=== PATIENT | female | born 1940 | race Hispanic/Latino ===

== ENCOUNTER 2017-01-09 11:34 | Inpatient (IN) | payer MEDICARE, BC ==
[2017-01-09 11:35] VITALS: BMI 28.3
[2017-01-09] MEDS ORDERED: Sodium Chloride 0.9% 500 ML IV STA (12:38)
--- NOTE | 2017-01-09 13:11 | ED PDOC ---
Arrival/HPI - General Chief Complaint: Lower Extremity Problem/Injury Time Seen by Provider: 01/09/17 12:33 Historian: Patient - History of Present Illness Narrative History of Present Illness (Text): 01/09/17 12:35 Mela Washington is a 76 year old female who presents to the emergency department complaining of worsening chronic weakness and chronic lower extremity weakness for the last few months. Patient was sent in by PMD for admission and further evaluation. Patient notes that she experienced associated intermittent nausea, vomiting, and diarrhea with no abdominal pain. At present, patient is currently asymptomatic and has no other complaints at this time. Time/Duration: Other (few months) Symptom Onset: Gradual Symptom Course: Worsening Activities at Onset: Light Context: Home Past Medical History - Provider Review Nursing Documentation Reviewed: Yes - Infectious Disease Hx of Infectious Diseases: None - Tetanus Immunization Tetanus Immunization: Unknown - Cardiac Hx Cardiac Disorders: Yes Hx Congestive Heart Failure: Yes Hx Hypertension: Yes - Pulmonary Hx Respiratory Disorders: Yes (pe 09/2014) - Neurological Hx Neurological Disorder: Yes (memory loss) Hx Parkinson's Disease: No - HEENT Hx HEENT Disorder: Yes (glasses) Hx Cataracts: Yes (b/l) Hx Macular Degeneration: Yes Other/Comment: left eye sx - Renal Hx Renal Disorder: No Other/Comment: overactive bladder - Endocrine/Metabolic Hx Diabetes Mellitus Type 2: Yes - Hematological/Oncological Hx Blood Transfusions: Yes Hx Blood Transfusion Reaction: No - Integumentary Other/Comment: bruises easily, eccymosis to abd - Musculoskeletal/Rheumatological Hx Arthritis: Yes - Gastrointestinal Hx Gastrointestinal Disorders: Yes Hx Gastroesophageal Reflux: Yes Other/Comment: gallstones, common bile duct stent - Genitourinary/Gynecological Hx Genitourinary Disorders: Yes Hx Incontinence: Yes - Psychiatric Hx Anxiety: Yes Hx Depression: Yes Hx Emotional Abuse: No Hx Physical Abuse: No Hx Substance Use: No Other/Comment: sleep difficulties - Surgical History Hx Musculoskeletal Surgery: Yes (bilat knee repair) - Anesthesia Hx Anesthesia: Yes Hx Anesthesia Reactions: Yes Hx Malignant Hyperthermia: No - Suicidal Assessment Feels Threatened In Home Enviroment: No Family/Social History - Physician Review Nursing Documentation Reviewed: Yes Family/Social History: No Known Family HX Smoking Status: Former Smoker Hx Alcohol Use: No Hx Substance Use: No Hx Substance Use Treatment: No Allergies/Home Meds Allergies/Adverse Reactions: Allergies No Known Allergies Allergy (Verified 01/09/17 11:51) Home Medications: Home Meds Medication Instructions Recorded Confirmed Atorvastatin Calcium [Lipitor] 20 mg PO DAILY 03/30/13 01/09/17 Metoprolol Succinate [Toprol XL] 200 mg PO DAILY 09/16/14 01/09/17 Albuterol 0.083% [Albuterol 0.083% 3 ml IH QID PRN 03/29/15 01/09/17 Inhal Gladys (2.5 mg/3 ml) UD] Allopurinol 100 mg PO DAILY 07/20/15 01/09/17 Aricept 5 mg PO HS 07/20/15 01/09/17 Boniva 150 mg PO Q30D 07/20/15 01/09/17 Lasix 40 mg PO DAILY 07/20/15 01/09/17 Methimazole 10 mg PO TID 07/20/15 01/09/17 Montelukast [Singulair] 10 mg PO HS 07/20/15 01/09/17 Apixaban [Eliquis] 5 mg PO BID 10/04/15 01/09/17 Darifenacin Hydrobromide [Enablex] 15 mg PO HS 10/04/15 01/09/17 Escitalopram [Lexapro] 20 mg PO DAILY 10/04/15 01/09/17 Potassium Chloride [Klor-Con M20] 20 meq PO BID 10/04/15 01/09/17 diltiaZEM CD [Cardizem CD] 240 mg PO DAILY 10/04/15 01/09/17 Physical Exam - Physical Exam Narrative Physical Exam (Text): - Review of Systems Constitutional: Chronic weakness. absent: Fatigue, Weight Change, Fevers Eyes: Normal ENT: Normal Respiratory: Normal absent: SOB, Cough, Sputum Cardiovascular: Normal absent: Chest pain, Palpitations, Syncope Gastrointestinal: Normal absent: Abdominal pain, Diarrhea, Nausea, Vomiting Genitourinary: Normal. absent: Dysuria, Frequency, Hematuria Musculoskeletal: Normal. absent: Arthralgias, Back Pain, Neck Pain Skin: Normal Neurological: Normal absent: Focal Weakness Endocrine: Normal Hemo/Lymphatic: Normal Psychiatric: Normal - Physical exam Patient appears age appropriate, speaking full sentences without difficulty - Systems Exam Head: Present: Atraumatic, Normocephalic Pupils: Present: PERRL Extraocular Muscles: Present: EOMI Conjunctiva: Present: Normal Mouth: Present: Moist Mucous Membranes Neck: Present: Normal Range of Motion. No: MIDLINE TENDERNESS, Paraspinal Tenderness Respiratory/Chest: Present: Clear to Auscultation, Good Air Exchange. No: Respiratory Distress, Accessory Muscle Use, Tachypnic Cardiovascular: Present: Regular Rate and Rhythm, Normal S1, S2, Peripheral Pulses Present. No: Murmurs Abdomen: Present: Normal Bowel Sounds, No: Tenderness, Peritoneal Signs, Rebound, Guarding, Distention Back: Present: Normal Inspection. No: Midline Tenderness, Paraspinal Tenderness Upper Extremity: Present: Normal Inspection. No: Cyanosis, Edema Lower Extremity: Present: Normal Inspection. No: Edema Neurological: Present: GCS=15, Speech Normal, cranial nerves II through XII fully intact with no cerebellar abnormality, neuro-sensory fully intact. No focal neurological deficits. Skin: Present: Warm, Dry, Normal Color. No: Rashes Lymphatic: Present: OX3, NI, NC Psychiatric: Present: Alert, Oriented x 3, Normal Insight, Normal Concentration Vital Signs Reviewed: Yes Vital Signs Temp Pulse Resp BP Pulse Ox 01/09/17 13:11 63 18 142/81 93 L 01/09/17 12:25 72 17 139/76 95 01/09/17 11:47 98.3 F 68 18 143/68 98 Temperature: Afebrile Blood Pressure: Normal Pulse: Regular Respiratory Rate: Normal Appearance: Positive for: Well-Appearing, Non-Toxic, Comfortable Pain Distress: None Mental Status: Positive for: Alert and Oriented X 3 Medical Decision Making ED Course and Treatment: 01/09/17 12:35 Impression: 76 year old female complaining of worsening chronic weakness and chronic lower extremity weakness for the last few months. No focal neurological deficits on examination. Differential Diagnosis included but are not limited to: dehydration vs. deconditioning Plan: -- EKG -- Chest X-ray -- IV Fluids -- Labs -- Reassess and disposition Prior Visits: Notes and results from previous visits were reviewed. Patient last seen in the ED on 10/04/15 referred by PMD for pain evaluation and x-ray. Patient was discharged home. Progress Notes: 01/09/17 13:20 Chest X-ray: Creator : Allan Leyva MD IMPRESSION: No active disease. 01/09/17 14:[address] De Santiago, who states that he will admit patient to his service. Diagnosis is weakness and pancreatitis. Dr. Velasquez on consult. pt in no distress, aware of and agrees with plan EKG shows atrial fibrillation, 67 bpm, no ST segment elevations. Interpreted by me. 01/09/17 14:14 - Lab Interpretations Lab Results: 01/09/17 00:51 01/09/17 13:00 Lab Results 01/09/17 13:00: Sodium 138, Potassium 3.5 L, Chloride 101, Carbon Dioxide 26, Anion Gap 15, BUN 31 H, Creatinine 0.7, Est GFR ( Amer) > 60, Est GFR ( Non-Af Amer) > 60, Random Glucose 115 H, Calcium 10.0, Total Bilirubin 1.0, AST 63 H, ALT 58 H, Alkaline Phosphatase 95, Total Protein 7.2, Albumin 3.7, Globulin 3.4, Albumin/Globulin Ratio 1.1, Lipase 1692 H 01/09/17 00:51: PT 11.9 H, INR 1.10 H, APTT 26.5 01/09/17 00:51: WBC 8.2, RBC 4.36, Hgb 12.2, Hct 36.8, MCV 84.4, MCH 28.0, MCHC 33.2, RDW 15.4 H, Plt Count 167, MPV 12.2 H, Gran % 68.8 H, Lymph % (Auto) 20.8 L, Perkins % (Auto) 9.1 H, Eos % (Auto) 1.1 L, Baso % (Auto) 0.2, Gran # 5.64, Lymph # 1.7, Perkins # 0.8 H, Eos # 0.1, Baso # 0.02 I have reviewed the lab results: Yes - RAD Interpretation Radiology Orders: 01/09/17 12:34 CHEST PORTABLE [RAD] Stat 01/09/17 13:47 ABD & PELVIS IV CONTRAST ONLY [CT] Stat - Medication Orders Current Medication Orders: Sodium Chloride (Sodium Chloride 0.9%) 1,000 mls @ 1,000 mls/hr IV .Q1H STA Stop: 01/09/17 14:46 Last Admin: 01/09/17 13:55 Dose: 1,000 mls/hr Discontinued Medications Sodium Chloride (Sodium Chloride 0.9%) 500 mls @ 1,000 mls/hr IV .Q30M STA Stop: 01/09/17 13:07 Last Admin: 01/09/17 13:06 Dose: 1,000 mls/hr Iohexol (Omnipaque 350 100 Ml) Confirm Administered Dose 350 mg .ROUTE .STK-MED ONE Stop: 01/09/17 14:05 - Scribe Statement The provider has reviewed the documentation as recorded by the Scribe Colleen Montgomery Provider Scribe Attestation: All medical record entries made by the Scribe were at my direction and personally dictated by me. I have reviewed the chart and agree that the record accurately reflects my personal performance of the history, physical exam, medical decision making, and the department course for this patient. I have also personally directed, reviewed, and agree with the discharge instructions and disposition. Disposition/Present on Arrival - Present on Arrival Any Indicators Present on Arrival: No History of DVT/PE: Yes History of Uncontrolled Diabetes: No Urinary Catheter: No (inserted in or) History of Decub. Ulcer: No History Surgical Site Infection Following: None - Disposition Have Diagnosis and Disposition been Completed?: Yes Diagnosis: Pancreatitis Disposition: HOSPITALIZED Disposition Time: 14:03 Patient Plan: Admission Condition: FAIR Referrals: Oniel De Santiago MD [Primary Care Provider] - Follow up with primary
[2017-01-09 13:12] LABS: ADD MANUAL DIFF? NO
[2017-01-09 13:17] LABS: BASO # 0.02 K/mm3 (0.0-2.0); BASO % 0.2 % (0.0-3.0); EOS # 0.1 (0.0-0.7); EOS % 1.1 % (1.5-5.0); GRAN # 5.64 (1.4-6.5); GRAN % 68.8 % (50.0-68.0); HEMATOCRIT 36.8 % (36.0-48.0); LYMPH # 1.7 (1.2-3.4); LYMPH % 20.8 % (22.0-35.0); MEAN CELL VOLUME 84.4 fL (80.0-105.0); MEAN CORPUSCULAR HGB CONC 33.2 g/dl (31.0-37.0); MEAN PLATELET VOLUME 12.2 fl (7.0-11.0); MONO # 0.8 (0.1-0.6); MONO % 9.1 % (1.0-6.0); PLATELET COUNT 167 10^3/uL (120.0-450.0); RED CELL DISTRIBUTION WIDTH 15.4 % (11.5-14.5); WHITE BLOOD COUNT 8.2 10^3/ul (4.5-11.0)
--- NOTE | 2017-01-09 13:18 | RAD ---
HISTORY: cough COMPARISON: 07/25/2015 FINDINGS: LUNGS: No active pulmonary disease. PLEURA: No significant pleural effusion identified, no pneumothorax apparent. CARDIOVASCULAR: Normal. OSSEOUS STRUCTURES: No significant abnormalities. VISUALIZED UPPER ABDOMEN: Normal. OTHER FINDINGS: None. IMPRESSION: No active disease.
[2017-01-09 13:23] LABS: ALB/GLOB RATIO 1.1 (1.1-1.8); ALKALINE PHOSPHATASE 95 U/L (38-133); ALT/SGPT 58 U/L (7-56); AST/SGOT 63 U/L (15-39); BLOOD UREA NITROGEN 31 mg/dL (7-21); CARBON DIOXIDE 26 mmol/L (21-33); CHLORIDE 101 mmol/L (98-107); GFR AFRICAN-AMERICAN > 60; GLUCOSE,RANDOM 115 mg/dL (70-110); LIPASE 1692 U/L (23-300); POTASSIUM 3.5 mmol/L (3.6-5.0); SODIUM 138 mmol/L (132-148); TOTAL PROTEIN 7.2 g/dL (5.8-8.3)
[2017-01-09 13:24] LABS: INR 1.1 (0.93-1.08); PARTIAL THROMBOPLASTIN TIME 26.5 Seconds (23.7-30.8)
[2017-01-09] MEDS ORDERED: Sodium Chloride 0.9% 1,000 ML IV STA (13:47)
[2017-01-09] MEDS ORDERED: Iohexol 350 MG/100 ML VIAL ONE (14:04)
--- NOTE | 2017-01-09 14:41 | CT ---
PROCEDURE: CT Abdomen and Pelvis with contrast HISTORY: abd pain COMPARISON: None. TECHNIQUE: Contrast dose: 100 cc of Omni 350 Radiation dose: Total exam DLP = 423 mGy-cm. This CT exam was performed using one or more of the following dose reduction techniques: Automated exposure control, adjustment of the mA and/or kV according to patient size, and/or use of iterative reconstruction technique. FINDINGS: LOWER THORAX: Unremarkable. LIVER: Unremarkable. No gross lesion or ductal dilatation. GALLBLADDER AND BILE DUCTS: Gallbladder removed PANCREAS: Unremarkable. No gross lesion or ductal dilatation. SPLEEN: Unremarkable. ADRENALS: Unremarkable. No mass. KIDNEYS AND URETERS: Unremarkable. No hydronephrosis. No solid mass. VASCULATURE: Unremarkable. No aortic aneurysm. BOWEL: Unremarkable. No obstruction. No gross mural thickening. APPENDIX: Normal appendix. PERITONEUM: The previous study showed a large chronic hematoma anterior to the left psoas muscle displacing the left kidney. This has resolved. There is a minimal 12 mm collection seen on axial 84 series 2. LYMPH NODES: Unremarkable. No enlarged lymph nodes. BLADDER: Unremarkable. REPRODUCTIVE: Unremarkable. BONES: No acute fracture. OTHER FINDINGS: None. IMPRESSION: No acute findings
[2017-01-09] MEDS ORDERED: Albuterol-Ipratrop 3 mg / 0.5 (3 ml) UD IH PRN (18:26)
[2017-01-09] MEDS ORDERED: Potassium Chloride 20 mEq ER Tab PO STA (18:27)
[2017-01-09] MEDS ORDERED: Pneumococcal 23-Valent Vaccine IM ONE (21:23)
[2017-01-09] MEDS ORDERED: DARIFENACIN HYDROBROMIDE 15 MG PO SCH (22:00)
[2017-01-09] MEDS ORDERED: Potassium Chloride 20 mEq ER Tab PO ONE (22:00)
--- NOTE | 2017-01-09 22:29 | CARD ---
APPROVED REPORT EKG Measurement Heart [id number] <Conclusion> Atrial fibrillation Cannot rule out Anterior infarct, age undetermined Abnormal ECG
[2017-01-10 07:05] LABS: ALB/GLOB RATIO 1.1 (1.1-1.8); ALKALINE PHOSPHATASE 80 U/L (38-133); ALT/SGPT 54 U/L (7-56); AST/SGOT 35 U/L (15-39); BILIRUBIN,TOTAL 0.7 mg/dL (0.2-1.3); BLOOD UREA NITROGEN 24 mg/dL (7-21); CALCIUM 9.5 mg/dL (8.4-10.5); CARBON DIOXIDE 27 mmol/L (21-33); CHLORIDE 106 mmol/L (98-107); GFR AFRICAN-AMERICAN > 60; GLUCOSE,RANDOM 94 mg/dL (70-110); MAGNESIUM 1.4 mg/dL (1.7-2.2); POTASSIUM 4.6 mmol/L (3.6-5.0); SODIUM 141 mmol/L (132-148); TOTAL PROTEIN 6.1 g/dL (5.8-8.3)
[2017-01-10 07:07] LABS: HEMATOCRIT 34.8 % (36.0-48.0); MEAN CELL VOLUME 86.4 fL (80.0-105.0); MEAN CORPUSCULAR HEMOGLOBIN 27.8 pg (25.0-35.0); MEAN CORPUSCULAR HGB CONC 32.2 g/dl (31.0-37.0); MEAN PLATELET VOLUME 11.6 fl (7.0-11.0); RED CELL DISTRIBUTION WIDTH 15.9 % (11.5-14.5); WHITE BLOOD COUNT 5.2 10^3/ul (4.5-11.0)
[2017-01-10] MEDS ORDERED: Metoprolol Succinate 100 mg XL Tab PO SCH (08:00)
[2017-01-10] MEDS: Potassium Chloride 20 mEq ER Tab PO SCH ×2 (09:02→18:26)
[2017-01-10] MEDS ORDERED: Lactated Ringer's 1,000 ML IV SCH ×2 (10:48→19:48)
--- NOTE | 2017-01-10 10:58 | CP.PCM.CON ---
<Reynaldo Gale - Last Filed: 01/10/17 10:54> History of Present Illness - History of Present Illness History of Present Illness: GI consult for Dr. Velasquez 76 F w PMH of choledocolithiasis s/p lap cholecystectomy and ERCP with sphincterotomy in 2014 and afib/ PE on anticoagulation came with worsening chronic weakness and chronic lower extremity weakness for the last few months. Pt was noted to have elevated lipase at 1700 and GI was consulted to evaluate. Patient notes that she experienced associated intermittent nausea, vomiting, and diarrhea with no abdominal pain. At present, patient is currently asymptomatic and has no other complaints at this time. CT showed no acute finding. Review of Systems - Constitutional Constitutional: Weakness. absent: Anorexia, Chills - Respiratory Respiratory: absent: Dyspnea - Gastrointestinal Gastrointestinal: Diarrhea, Nausea, Vomiting. absent: Abdominal Pain Past Patient History - Infectious Disease Hx of Infectious Diseases: None - Tetanus Immunizations Tetanus Immunization: Unknown - Past Social History Smoking Status: Former Smoker - CARDIAC Hx Cardiac Disorders: Yes (denies mi) Hx Cardia Arrhythmia: Yes (a fib) Hx Congestive Heart Failure: Yes Hx Hypercholesterolemia: Yes Hx Hypertension: Yes Hx Peripheral Edema: Yes - PULMONARY Hx Respiratory Disorders: Yes (pe 09/2014) - NEUROLOGICAL Hx Neurological Disorder: Yes (memory loss) Hx Parkinson's Disease: No - HEENT Hx HEENT Problems: Yes (glasses) Hx Cataracts: Yes (b/l) Hx Macular Degeneration: Yes Other/Comment: left eye sx - RENAL Hx Chronic Kidney Disease: No Other/Comment: overactive bladder - ENDOCRINE/METABOLIC Hx Diabetes Mellitus Type 2: Yes Hx Hyperthyroidism: Yes - HEMATOLOGICAL/ONCOLOGICAL Hx Blood Disorders: (blood transfusions) Hx Anemia: Yes (iron deficiency) - INTEGUMENTARY Other/Comment: bruises easily, eccymosis to abd, itchy rash to back thighs legs red raised rash,pt stated "I got the rash after given epinephrine and novacaine after my teeth were removed" - MUSCULOSKELETAL/RHEUMATOLOGICAL Hx Falls: Yes (recent) - GASTROINTESTINAL Hx Gastrointestinal Disorders: Yes (diarrhea 3.5 to 4 months after meals) Hx Gastroesophageal Reflux: Yes Other/Comment: gallstones, common bile duct stent - GENITOURINARY/GYNECOLOGICAL Hx Genitourinary Disorders: Yes (frequency) Hx Incontinence: Yes - PSYCHIATRIC Hx Anxiety: Yes Hx Depression: Yes Hx Emotional Abuse: No Hx Physical Abuse: No Other/Comment: sleep difficulties - SURGICAL HISTORY Hx Musculoskeletal Surgery: Yes (bilat knee repair) Other/Comment: colonoscopy 1 1/2 months ago polyp removed, teeth removed 2 months ago in prep for dentures, ct guided bx lymphadenopathy, r knee replaced 2010, left knee replacement 2 2014, left humerus fx sx with nohemy, d&c - ANESTHESIA Hx Anesthesia: Yes Hx Anesthesia Reactions: Yes Hx Malignant Hyperthermia: No Meds Allergies/Adverse Reactions: Allergies Allergy/AdvReac Type Severity Reaction Status Date / Time epinephrine Allergy RASH Verified 01/09/17 20:52 novacaine Allergy RASH Uncoded 01/09/17 20:52 - Medications Medications: Current Medications Albuterol/Ipratropium (Duoneb 3 Mg/0.5 Mg (3 Ml) Ud) 3 ml IH [id number] PRN PRN Reason: Shortness of Breath Allopurinol (Zyloprim) 100 mg PO DAILY RACHANA Apixaban (Eliquis) 5 mg PO BID RACHANA PRN Reason: Protocol Last Admin: 01/09/17 18:45 Dose: 5 mg Atorvastatin Calcium (Lipitor) 10 mg PO DIN [facility] Last Admin: 01/09/17 18:45 Dose: 10 mg Diltiazem HCl (Cardizem Cd) 240 mg PO DAILY RACHANA Donepezil HCl (Aricept) 5 mg PO HS [facility] Last Admin: 01/09/17 21:49 Dose: 5 mg Escitalopram Oxalate (Lexapro) 20 mg PO DAILY [facility] Furosemide (Lasix) 40 mg PO DAILY [facility] Lactated Ringer's (Lactated Ringer's) 1,000 mls @ 150 mls/hr IV .Q6H40M [facility] Metoprolol Succinate (Toprol Xl) 200 mg PO BRK [facility] Last Admin: 01/10/17 09:02 Dose: 200 mg Montelukast Sodium (Singulair) 10 mg PO HS [facility] Last Admin: 01/09/17 21:49 Dose: 10 mg Potassium Chloride (K-Dur 20 Meq Er Tab) 20 meq PO BRKDIN [facility] Last Admin: 01/10/17 09:02 Dose: 20 meq Physical Exam - Constitutional Appears: No Acute Distress - Head Exam Head Exam: ATRAUMATIC, NORMAL INSPECTION, NORMOCEPHALIC - Eye Exam Eye Exam: EOMI, Normal appearance, PERRL. absent: Scleral icterus Pupil Exam: NORMAL ACCOMODATION, PERRL - ENT Exam ENT Exam: Mucous Membranes Moist, Normal Exam - Neck Exam Neck exam: Positive for: Normal Inspection - Respiratory Exam Respiratory Exam: Clear to Auscultation Bilateral, NORMAL BREATHING PATTERN - Cardiovascular Exam Cardiovascular Exam: REGULAR RHYTHM - GI/Abdominal Exam GI & Abdominal Exam: Soft. absent: Distended, Firm, Guarding, Hernia, Rigid, Tenderness - Extremities Exam Extremities exam: Positive for: normal inspection - Back Exam Back exam: NORMAL INSPECTION - Neurological Exam Neurological exam: Alert, CN II-XII Intact, Normal Gait, Oriented x3, Reflexes Normal - Psychiatric Exam Psychiatric exam: Normal Affect, Normal Mood - Skin Skin Exam: Dry, Intact, Normal Color, Warm Results - Vital Signs Recent Vital Signs: Last Vital Signs Temp 98.3 F 01/10/17 08:00 Pulse 62 01/10/17 09:02 Resp 20 01/10/17 08:00 BP 131/65 01/10/17 09:02 Pulse Ox 96 01/10/17 08:00 - Labs Result Diagrams: 01/10/17 06:20 01/10/17 06:20 Labs: Laboratory Results - last 24 hr 01/10/17 01/10/17 06:20 06:20 WBC 5.2 D RBC 4.03 Hgb 11.2 L Hct 34.8 L MCV 86.4 MCH 27.8 MCHC 32.2 RDW 15.9 H Plt Count 147 MPV 11.6 H Sodium 141 Potassium 4.6 Chloride 106 Carbon Dioxide 27 Anion Gap 13 BUN 24 H Creatinine 0.7 Est GFR ( Amer) > 60 Est GFR (Non-Af Amer) > 60 Random Glucose 94 Calcium 9.5 Magnesium 1.4 L Total Bilirubin 0.7 AST 35 ALT 54 Alkaline Phosphatase 80 Total Protein 6.1 Albumin 3.2 Globulin 3.0 Albumin/Globulin Ratio 1.1 Assessment & Plan - Assessment and Plan (Free Text) Assessment: 76 w pmh of choledocolithiasis s/p ERCP w sphincterotomy and Lap cholecystectomy , Afib /PE on anticoagulant found to have lipase level of 1700. LFT was wnl. CT showed no acute finding. Plan -ordered MRCP -NPO -IVF : LR 150/hr -f/u Lipase, LFT, Direct bili -We will follow closely Discussed with Dr. Velasquez <Ron,Kovil V - Last Filed: 01/10/17 21:50> Meds - Medications Medications: Current Medications Albuterol/Ipratropium (Duoneb 3 Mg/0.5 Mg (3 Ml) Ud) 3 ml IH [id number] PRN PRN Reason: Shortness of Breath Allopurinol (Zyloprim) 100 mg PO DAILY [facility] Last Admin: 01/10/17 11:06 Dose: 100 mg Apixaban (Eliquis) 5 mg PO BID [facility] PRN Reason: Protocol Last Admin: 01/10/17 11:04 Dose: 5 mg Atorvastatin Calcium (Lipitor) 10 mg PO DIN [facility] Last Admin: 01/09/17 18:45 Dose: 10 mg Diltiazem HCl (Cardizem Cd) 240 mg PO DAILY [facility] Last Admin: 01/10/17 11:04 Dose: 240 mg Donepezil HCl (Aricept) 5 mg PO HS [facility] Last Admin: 01/09/17 21:49 Dose: 5 mg Escitalopram Oxalate (Lexapro) 20 mg PO DAILY [facility] Last Admin: 01/10/17 11:05 Dose: 20 mg Furosemide (Lasix) 40 mg PO DAILY [facility] Last Admin: 01/10/17 11:05 Dose: 40 mg Lactated Ringer's (Lactated Ringer's) 1,000 mls @ 150 mls/hr IV .Q6H40M [facility] Metoprolol Succinate (Toprol Xl) 200 mg PO BRK [facility] Last Admin: 01/10/17 09:02 Dose: 200 mg Montelukast Sodium (Singulair) 10 mg PO HS [facility] Last Admin: 01/09/17 21:49 Dose: 10 mg Potassium Chloride (K-Dur 20 Meq Er Tab) 20 meq PO BRKDIN [facility] Last Admin: 01/10/17 09:02 Dose: 20 meq Results - Vital Signs Recent Vital Signs: Last Vital Signs Temp 98.3 F 01/10/17 08:00 Pulse 62 01/10/17 11:04 Resp 20 01/10/17 08:00 BP 131/65 01/10/17 11:05 Pulse Ox 96 01/10/17 08:00 - Labs Result Diagrams: 01/10/17 06:20 01/10/17 06:20 Labs: Laboratory Results - last 24 hr 01/10/17 01/10/17 01/10/17 06:20 06:20 08:00 WBC 5.2 D RBC 4.03 Hgb 11.2 L Hct 34.8 L MCV 86.4 MCH 27.8 MCHC 32.2 RDW 15.9 H Plt Count 147 MPV 11.6 H Sodium 141 Potassium 4.6 Chloride 106 Carbon Dioxide 27 Anion Gap 13 BUN 24 H Creatinine 0.7 Est GFR ( Amer) > 60 Est GFR (Non-Af Amer) > 60 Random Glucose 94 Calcium 9.5 Magnesium 1.4 L 1.3 L Total Bilirubin 0.7 AST 35 ALT 54 Alkaline Phosphatase 80 Total Protein 6.1 Albumin 3.2 Globulin 3.0 Albumin/Globulin Ratio 1.1 Assessment & Plan - Assessment and Plan (Free Text) Assessment: This is an addendum to the GI consult of Dr. Reynaldo Gale, resident, . Patient was seen and examined at the bedside this morning. The chart, labs,radiology report was reviewed. On exam the abdomen was soft and nontender.I agree with plan as outlined above, this patient h/o cholecystectomy with h/o of CBD stones in the past. Will request for MRCP/MRI abdomen w/wo contrast, the renal functions are stable. Will make further recommendations after review of MRCP and clinical course.
[2017-01-10] MEDS: diltiaZEM 240 mg/24 Hours CD Cap PO SCH (11:04)
[2017-01-10] MEDS ORDERED: Magnesium Sulfate 2 GM in Sodium Chloride 0.9% 100 ML IVPB ONE (13:41)
[2017-01-10 14:13] LABS: MAGNESIUM 1.3 mg/dL (1.7-2.2)
[2017-01-10] MEDS ORDERED: Gadodiamide 287 MG/ML VIAL (15ML) IV ONE (17:18)
--- NOTE | 2017-01-10 18:34 | HP ---
The patient is a 76-year-old female who has history of chronic hypothyroidism, hypertension, anemia, cholecystectomy, obesity, arthritis, bilateral knee replacement, came in with generalized weakness ma inly in the lower extremity weakness. The patient also complained of diarrhea for the last few month s and feeling nauseous. HISTORY OF PRESENT ILLNESS: A 76-year-old female with history of bilateral knee replacement. She li ves by herself. She has a history of bilateral knee replacement, hypothyroidism on medications, hist ory of leg edema, hypertension, atrial fibrillations with normal . She came in with weakness, c annot get up easily, and if she bends to get something, she cannot get up easily and stand. This has been going on for the last few months, more than 6 months to 9 months. She also had noted associati on of diarrhea for the last few months, whenever she eats she gets another bowel movement with loose bowel movement. There is no blood in the stool. The patient did have a colonoscopy and it was negat horacio. She also had history of pancreatitis in the past and cholecystectomy in the past, which is stab le since then. She does have a DVT, and she is on Eliquis on a daily basis. Denied any fever or any chills. She does feel nauseous, but otherwise negative. PAST MEDICAL HISTORY: As I mentioned, hypothyroidism, obesity, bilateral knee replacement, hypertens ion, hypercholesterolemia, anxiety, depression, chronic back pain, chronic knee pain, hyperuricemia, chronic DVT, chronic atrial fibrillation, history of pulmonary embolism, urinary incontinence and dep ression. HOME MEDICATIONS: She takes Cardizem-CD 240, potassium 20 b.i.d., Singulair 10, Toprol-XL 200, methi mazole 10 mg t.i.d., Lasix 40 p.o. daily, Lexapro 20 mg p.o. daily, mg p.o. at bedtime, Boniva once a month, Lipitor 20 mg p.o. every day, Aricept 5 mg p.o. at bedtime, Eliquis 5 mg b.i.d., allopu rinol 100 p.o. daily and nebulizer treatment. ALLERGIES: SHE IS ALLERGIC TO PENICILLIN AND NOVOCAIN. FAMILY HISTORY: Noncontributory. REVIEW OF SYSTEMS: As in the present illness. She also complains of knee pain, back pain. She does get short of breath. She did have a history of CHF, but seems better, clear and no other complaints . Incontinence. She has joint pain, knee pain, back pain, anxiety. PHYSICAL EXAMINATION: GENERAL: On 01/09/2017, the patient seen in the Emergency Room initially then she went to floor. Th e patient is seen on the floor, sitting in the bed, lying supine in the bed, alert, awake, oriented x 3. VITAL SIGNS: Temperature 98.3, heart rate 68, blood pressure 143/68, respirations 18, saturation 98% on room air. HEAD AND NECK: Normal. No JVD, no thyromegaly. CHEST: Clear, good entry. CARDIAC: First and second sounds are normal. ABDOMEN: Soft, obese, nontender. EXTREMITIES: No edema. NEUROLOGIC: The patient does have proximal muscle weakness, especially in bilateral thigh area. She cannot lift it up. Also in upper extremity, left side; she does have a history of surgery wit h restricted shoulder movement due to pain. LABORATORY DATA: White count 8.2, hemoglobin 12.2, hematocrit 36.8, platelets 167. PT/INR: 1.1 INR , PTT 26.5. Chemistry shows sodium 138, potassium 3.5, chloride 101, bicarbonate 26, BUN 31, creatin ine 0.7. Liver function test normal. Blood sugar 115. Calcium 10, magnesium total bilirubin is nor mal. AST 63, ALT 58. Alkaline phosphatase is normal. Lipase is 1692. The patient also had a CT ab domen and pelvis, which noted for no acute findings. Liver unremarkable. Pancreas unremarkable. No lesions. Adrenals unremarkable. IMPRESSION AND PLAN: 1. This is a 76-year-old with multiple medical problems, came in with generalized weakness mainly, p roximal muscle weakness. We will admit the patient. We will get a neurology consultation, Dr. Olman jain. We will get a TSH for being the patient is taking methimazole. Check her T3 and T4. We will als o get physical therapy eval. 2. Hypertension, hypercholesterolemia, chronic anxiety, chronic obstructive pulmonary disease, hypot hyroidism, chronic hypercoagulable state, chronic atrial fibrillation. Resume Eliquis, resume all ot her medications. Follow up clinically. Repeat labs in the morning. Oniel De Santiago MD cc: [phone] TT: 01/10/2017 18:34:01 mn
[2017-01-10 19:04] LABS: T4 14.1 ug/dL (5.5-11.0)
[2017-01-10 19:17] LABS: T3 2.59 ng/mL (0.97-1.69); THYROID STIMULATING HORMONE < 0.02 mIU/mL (0.46-4.68)
--- NOTE | 2017-01-10 19:25 | CON ---
DATE: 01/10/2017 HISTORY OF PRESENT ILLNESS: This is a 76-year-old female who came to the Emergency Room complaining of chronic weakness of the lower extremities and also nausea, vomiting and diarrhea with no abdominal pain and called to evaluate the patient. PAST MEDICAL HISTORY: Macular degeneration, overactive bladder, diabetes mellitus, arthritis. ALLERGIES: No known drug allergy. HOME MEDICATIONS: Lipitor, Toprol, allopurinol, Aricept, Boniva, Lasix, methimazole, Eliquis, Lexapr o. REVIEW OF SYSTEMS: A 10-point review of system was negative except both lower extremity weakness. PHYSICAL EXAMINATION: HEENT: Normocephalic, atraumatic. NECK: Supple. NEUROLOGIC: Alert, awake, oriented x 3. No aphasia. Cranial nerves II-XII were tested. Pupils vidal ctive. Spontaneous movement of the extremities noted. Deep tendon reflexes 1+. Both plantars are d owngoing. Sensory appears intact. Cerebellar, gait, able to ambulate with a walker. IMPRESSION: Possibly spinal stenosis and rule out lumbosacral radiculopathy and proximal muscle weak ness, possibly secondary to deconditioning. LABORATORY DATA: WBC 8.2, hemoglobin 12.2, hematocrit 36.8, glucose 167. Sodium 138, potassium 3.5, chloride 101, CO2 of 26, glucose 115, BUN 31, creatinine 0.7. Workup in progress. The patient millicent g for MRI of the abdomen. PLAN: Continue present management. Workup in progress. We will follow up. Robert Dickerson MD cc: [id number] TT: 01/10/2017 19:24:28 Confirmation # [id number] Dictation # [id number] sn
--- NOTE | 2017-01-11 15:05 | MRI ---
PROCEDURE: Magnetic Resonance Cholangiopancreatography and abdomen with and without contrast HISTORY: COMPARISON: CT scan 01/09/2017. TECHNIQUE: Multiplanar, multisequence MR images of the abdomen were obtained, including heavily T2 weighted MRCP images of the biliary system. Rotating maximum intensity projection images of the biliary system were generated. 15 cc of Omniscan FINDINGS: MRCP: The common duct is dilated with a maximal diameter 13 mm. There has been previous cholecystectomy. There is no evidence of a common duct stone. There is no intrahepatic ductal dilatation LIVER: Unremarkable. No enhancing abnormality GALLBLADDER: Unremarkable. SPLEEN: Unremarkable. PANCREAS: Unremarkable. ADRENALS: Unremarkable. KIDNEYS: Unremarkable. AORTA: No aneurysm. ASCITES: None. 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 This is best demonstrated on image 12 series 3. This is a congenital abnormality. IMPRESSION: Dilated common bile duct with no evidence of stones or pancreatic mass
[2017-01-11] MEDS ORDERED: Lactated Ringer's 1,000 ML IV SCH (22:00)
[2017-01-12] MEDS ORDERED: Magnesium Sulfate 2 GM in Sodium Chloride 0.9% 100 ML IV ONE (01:25)
[2017-01-12] MEDS: Magnesium Oxide 400 mg Tab UD PO SCH ×2 (03:00→09:45)
[2017-01-12] MEDS ORDERED: Magnesium Oxide 400 mg Tab UD ONE (03:01)
--- NOTE | 2017-01-12 08:17 | PN ---
DATE: 01/10/2017 The patient is complaining she wants to eat. She feels better. The patient did have nausea when she came in. She went for MRCP, still result pending. She is still feeling weak. PHYSICAL EXAMINATION: VITAL SIGNS: Temperature is 97.6, heart rate 65, blood pressure 135/42, respirations 20, saturation 95% on room air. HEAD AND NECK: Normal. No JVD, no thyromegaly. CHEST: Clear, good entry. CARDIAC: First sound and second sound normal, regular. ABDOMEN: Soft, obese, mild generalized tenderness. EXTREMITIES: No edema. NEUROLOGIC: The patient does have some mild bilateral proximal muscle weakness. LABORATORY DATA: Shows the following: White count 5.2, hemoglobin 11.2, hematocrit 34.8, platelets 147. Chemistry shows sodium 141, potassium 4.6, chloride 106, bicarb 27, BUN 24, creatinine 0.7. Li sushil function test is normal. Magnesium is 1.4. Also, patient has high T4 and high T3 and low TSH. IMPRESSION AND PLAN: 1. Abdominal pain, nausea high lipase, possible acute pancreatitis. The patient went for MRCP, resu lts are still pending. The patient is insisting she wants to eat. We will give her a liquid diet. We will see how she does. Continue Protonix. We will keep a close eye on her. 2. Proximal muscle weakness, etiology unclear yet which could be primary or secondary muscle disease ; however, we will get a neuro consult with Dr. Dickerson. Will wait for the MRCP results to rule out a ny underlying malignancy. 3. Chronic atrial fibrillation and hypothyroidism. The patient is noncompliant with the Tapazole or . Will resume the medicines and will follow up clinically. The patient has normal aldolase le graham and continue current treatment. 4. Morbid obesity, generalized weakness. Will consider rehab. At this time, continue current treatment. Follow up with the merchandising consultant. Oniel De Santiago MD cc: [phone] TT: 01/12/2017 02:04:18 Confirmation # [id number] Dictation # [id number] an
--- NOTE | 2017-01-12 08:17 | PN ---
DATE: 01/11/2017 01/11/2017. The patient cannot Jackson complained that she vomited today and right now she is kept n.p.o. She has no abdominal pain. She still feels weak. This patient had MRCP done. PHYSICAL EXAMINATION: VITAL SIGNS: Stable. Heart rate went down to 40s overnight, on Toprol-XL 200. Temperature 98.3, he art rate 56, blood pressure 141/58, respirations 18, saturation 95% on room air. HEAD AND NECK: Normal. No JVD, no thyromegaly. CHEST: Clear, good entry. CARDIAC: First sound and second sound normal, regular. ABDOMEN: Obese with mild general tenderness. EXTREMITIES: No edema. NEUROLOGIC: General weakness, especially proximal muscles. LABORATORY DATA: She has low magnesium noted at 1.3. MRCP showed dilated common bile duct with no e vidence of stones or pancreatic mass. IMPRESSION AND PLAN: 1. Abdominal pain, vomiting with the MRCP negative for cancer. We will keep the patient n.p.o., giv e Zofran. Continue IV fluids. Follow up with Dr. Velasquez. 2. Chronic atrial fibrillation and hypertension. Continue Toprol-XL 100 mg once a day. Monitor her heart rate. 3. Generalized weakness and lower extremity weakness and back pain. We will consider MRI of lumbosa cral area. Neuro consult, Dr. Dickerson will see EEG evaluation outcome. 4. Hyperthyroidism which could be thyrotoxicosis with myopathy. Will adjust her medicines. Will follow up clinically. Continue current treatment. Continue Eliquis. Continue Protonix. [facility] for 3 to 4 weeks after evaluation. Oniel De Santiago MD cc: [phone] TT: 01/12/2017 02:14:30 Confirmation # [id number] Dictation # [id number] an
--- NOTE | 2017-01-12 08:17 | PN ---
DATE: 01/11/2017 SUBJECTIVE: This patient was seen and evaluated earlier. The patient is on a full liquid diet. Denies any abdominal pain. PHYSICAL EXAMINATION: VITAL SIGNS: Temperature is afebrile, pulse of 56, blood pressure 141/58 HEENT: Atraumatic, anicteric. NECK: Supple. HEART: S1, S2 heard. LUNGS: Bilateral air entry present. ABDOMEN: Soft. There is no tenderness. EXTREMITIES: No edema, no cyanosis. NEUROLOGIC: Alert, oriented. Moves all the extremities. LABORATORY DATA: They were not in [employer] at the time of review. The patient had an MRCP. MRCP was reviewed, has a dilated CBD and no stones. IMPRESSION: This 76-year-old patient with past medical history of common bile duct stones, status post cholecystectomy The patient did have an ERCP [employer] examination for removal of the common bile duct stones. Now has mildly elevated lipase level. The patient is relatively asymptomatic. LFTs have been normal. PLAN: Follow up with hemoglobin and hematocrit. Thank you very much for allowing us to participate in the care of this patient. Carlos Alberto Velasquez MD cc: [phone] TT: 01/12/2017 01:37:40 Confirmation # [id number] Dictation # [id number] MTDD
[2017-01-12 08:50] LABS: ADD MANUAL DIFF? NO
[2017-01-12 08:56] LABS: BASO # 0.02 K/mm3 (0.0-2.0); BASO % 0.2 % (0.0-3.0); EOS # 0.1 (0.0-0.7); EOS % 1.6 % (1.5-5.0); GRAN # 5.47 (1.4-6.5); GRAN % 68.4 % (50.0-68.0); HEMATOCRIT 34.7 % (36.0-48.0); LYMPH # 1.5 (1.2-3.4); LYMPH % 19.1 % (22.0-35.0); MEAN CELL VOLUME 86.3 fL (80.0-105.0); MEAN CORPUSCULAR HEMOGLOBIN 27.9 pg (25.0-35.0); MEAN CORPUSCULAR HGB CONC 32.3 g/dl (31.0-37.0); MONO # 0.9 (0.1-0.6); MONO % 10.7 % (1.0-6.0); PLATELET COUNT 140 10^3/uL (120.0-450.0); RED CELL DISTRIBUTION WIDTH 15.6 % (11.5-14.5)
[2017-01-12 09:04] LABS: INR 1.06 (0.93-1.08)
[2017-01-12 09:16] LABS: ALKALINE PHOSPHATASE 83 U/L (38-133); ALT/SGPT 44 U/L (7-56); AST/SGOT 26 U/L (15-39); BILIRUBIN,TOTAL 0.9 mg/dL (0.2-1.3); BLOOD UREA NITROGEN 9 mg/dL (7-21); CALCIUM 9.7 mg/dL (8.4-10.5); CARBON DIOXIDE 28 mmol/L (21-33); CHLORIDE 102 mmol/L (98-107); GFR AFRICAN-AMERICAN > 60; GLUCOSE,RANDOM 85 mg/dL (70-110); LIPASE 54 U/L (23-300); MAGNESIUM 2.3 mg/dL (1.7-2.2); POTASSIUM 4.1 mmol/L (3.6-5.0); SODIUM 139 mmol/L (132-148); TOTAL PROTEIN 6.4 g/dL (5.8-8.3)
[2017-01-12] MEDS: diltiaZEM 240 mg/24 Hours CD Cap PO SCH (09:45)
[2017-01-12] MEDS: Potassium Chloride 20 mEq ER Tab PO SCH ×2 (09:45→17:24)
[2017-01-12] MEDS: Metoprolol Succinate 100 mg XL Tab PO SCH (09:46)
[2017-01-12 12:26] LABS: HEMATOCRIT 35.2 % (36.0-48.0); MEAN CELL VOLUME 87.3 fL (80.0-105.0); MEAN CORPUSCULAR HEMOGLOBIN 27.5 pg (25.0-35.0); MEAN CORPUSCULAR HGB CONC 31.5 g/dl (31.0-37.0); MEAN PLATELET VOLUME 12.2 fl (7.0-11.0); RED CELL DISTRIBUTION WIDTH 16.1 % (11.5-14.5); WHITE BLOOD COUNT 5.4 10^3/ul (4.5-11.0)
--- NOTE | 2017-01-12 15:48 | CP.PCM.PN ---
Subjective - Date & Time of Evaluation Date of Evaluation: 01/12/17 Time of Evaluation: 09:30 - Subjective Subjective: Seen and examined at bedside this am, no abdominal pain. Reported to have N/V, no SOB or chest pain. No overt GI bleed reported. Objective - Vital Signs/Intake and Output Vital Signs (last 24 hours): Temp Pulse Resp BP Pulse Ox 98.8 F 66 18 141/58 L 96 01/12/17 07:30 01/12/17 07:30 01/12/17 07:30 01/12/17 07:30 01/12/17 07:30 Intake and Output: 01/12/17 01/12/17 06:59 18:59 Intake Total 2200 Balance 2200 - Medications Medications: Current Medications Albuterol/Ipratropium (Duoneb 3 Mg/0.5 Mg (3 Ml) Ud) 3 ml IH [id number] PRN PRN Reason: Shortness of Breath Allopurinol (Zyloprim) 100 mg PO DAILY [facility] Last Admin: 01/12/17 09:46 Dose: 100 mg Apixaban (Eliquis) 5 mg PO BID [facility] PRN Reason: Protocol Last Admin: 01/10/17 11:04 Dose: 5 mg Atorvastatin Calcium (Lipitor) 10 mg PO DIN [facility] Last Admin: 01/10/17 18:26 Dose: 10 mg Diltiazem HCl (Cardizem Cd) 240 mg PO DAILY [facility] Last Admin: 01/12/17 09:45 Dose: 240 mg Donepezil HCl (Aricept) 5 mg PO HS [facility] Last Admin: 01/11/17 22:24 Dose: 5 mg Escitalopram Oxalate (Lexapro) 20 mg PO DAILY [facility] Last Admin: 01/10/17 11:05 Dose: 20 mg Furosemide (Lasix) 40 mg PO DAILY [facility] Last Admin: 01/12/17 09:46 Dose: 40 mg Lactated Ringer's (Lactated Ringer's) 1,000 mls @ 85 mls/hr IV .[id number] [facility] Magnesium Oxide (Mag-Ox) 400 mg PO BID [facility] Last Admin: 01/12/17 09:45 Dose: 400 mg Methimazole (Tapazole) 10 mg PO TID [facility] Metoprolol Succinate (Toprol Xl) 100 mg PO BRK [facility] Last Admin: 01/12/17 09:46 Dose: 100 mg Montelukast Sodium (Singulair) 10 mg PO HS [facility] Last Admin: 01/11/17 22:24 Dose: 10 mg Ondansetron HCl (Zofran Inj) 4 mg IVP Q6H PRN PRN Reason: Nausea/Vomiting Potassium Chloride (K-Dur 20 Meq Er Tab) 20 meq PO BRKDIN [facility] Last Admin: 01/12/17 09:45 Dose: 20 meq - Labs Labs: 01/12/17 08:30 01/12/17 08:30 PT 11.4 Seconds (9.9-11.8) 01/12/17 08:30 INR 1.06 (0.93-1.08) 01/12/17 08:30 APTT 26.5 Seconds (23.7-30.8) 01/09/17 00:51 - Constitutional Appears: No Acute Distress - Head Exam Head Exam: NORMAL INSPECTION - Eye Exam Eye Exam: Normal appearance. absent: Scleral icterus - ENT Exam ENT Exam: Mucous Membranes Moist - Neck Exam Neck Exam: Normal Inspection - Respiratory Exam Respiratory Exam: NORMAL BREATHING PATTERN. absent: Respiratory Distress - GI/Abdominal Exam GI & Abdominal Exam: Soft, Normal Bowel Sounds. absent: Guarding, Tenderness, Organomegaly, Rebound - Extremities Exam Extremities Exam: absent: Calf Tenderness Additional comments: bilateral knees swollen. - Neurological Exam Neurological Exam: Alert, Awake, Oriented x3 Assessment and Plan - Assessment and Plan (Free Text) Assessment: Assessment: LE weakness, chronic back pain H/o CBD stones,s/p ERCP w/spincterotomy, biliary stent h/o cholecystectomy Pancreatitis,Elevated lipase, no resolved H/O PE H/O Atrial Fibrillation PLAN: Mrcp negative,report reviewed. continue PPI On Eliquis monitor LFT, normalized Advance diet, lowfat heart healthy diet, if tolerate, condiser Seen and discussed with Dr. Velasquez.
[2017-01-12 17:13] LABS: ALKALINE PHOSPHATASE 74 U/L (38-133); ALT/SGPT 47 U/L (7-56); AST/SGOT 32 U/L (15-39); BILIRUBIN,TOTAL 0.8 mg/dL (0.2-1.3); BLOOD UREA NITROGEN 14 mg/dL (7-21); CALCIUM 9.7 mg/dL (8.4-10.5); CARBON DIOXIDE 28 mmol/L (21-33); CHLORIDE 104 mmol/L (95-110); GFR AFRICAN-AMERICAN > 60; GLUCOSE,RANDOM 71 mg/dL (70-110); MAGNESIUM 1.9 mg/dL (1.7-2.2); PHOSPHOROUS 3.8 mg/dL (2.5-4.5); POTASSIUM 4.5 mmol/L (3.6-5.0); SODIUM 140 mmol/L (132-148); TOTAL PROTEIN 6.1 g/dL (5.8-8.3)
--- NOTE | 2017-01-12 19:18 | PN ---
DATE: 01/12/2017 CHIEF COMPLAINT: Followup for proximal lower extremity weakness. SUBJECTIVE: The patient seen and examined at bedside. She is able to lift up her legs. Still is we ak though. She also has some knee pain. She is on Toprol for AFib as well as Eliquis. Her MRCP hansa wed no abnormalities. She is being followed up by GI for abdominal pain. REVIEW OF SYSTEMS: A 14-point review of systems negative except for the above HPI. PAST MEDICAL HISTORY: History of hyperthyroidism, obesity, bilateral knee replacement, hypertension, hypercholesterolemia, chronic knee pain, hyperuricemia, anxiety, depression, chronic AFib, history o f depression. HOME MEDICATIONS: Reviewed via nurse's reconciliation sheet. ALLERGIES: ALLERGIC TO PENICILLIN AND NOVOCAIN. FAMILY HISTORY: Noncontributory. PHYSICAL EXAMINATION: VITAL SIGNS: Temperature 97.7, pulse 55, blood pressure 125/49, respiratory rate of 18, oxygen satur ation 95% via room air. GENERAL: The patient is sitting up in bed in no acute distress. HEENT: Atraumatic, normocephalic. PERRLA. Extraocular muscles intact. NECK: Supple, no JVD, no adenopathy noted. LUNGS: Clear to auscultation. No adventitious sounds. HEART: S1, S2, normal rate and rhythm. No murmurs, rubs, or gallops. ABDOMEN: Soft, nontender, nondistended. Bowel sounds are present. EXTREMITIES: No clubbing, no cyanosis. Peripheral pulses 2+ felt bilaterally. NEUROLOGIC: The patient is alert, orientated to person, place, month and year. Speech is fluent wit hout any errors. Cranial nerves II-XII intact. MOTOR: Moves all extremities equally. Toes downgoing bilaterally. SENSORY: Light touch, pinprick, proprioception, vibrations intact. DTRs are ____ and 1 at the knees and absent at the ankles. COORDINATION: Igbrct-vz-iqmg intact. Her proximal muscles on the muscle exam, there is not much atr ophy, just more ____ to get up which indicates some mild proximal muscle weakness and she is also dec onditioned. LABORATORY DATA: Sodium is 139, potassium 4.1, chloride of 102, carbon dioxide 28, BUN of 9, creatin ine 0.5, random glucose of 85. Total creatine kinase less than 20. ____ 916. ASSESSMENT AND PLAN: This is a 76-year-old woman with past medical history of atrial fibrillation on Eliquis and bilateral knee replacement, hyperthyroidism medications, history of hypertension, dyslip idemia, anxiety, depression, obesity, who came with proximal muscle weakness, abdominal pain. Abdomi nal pain is being worked up by gastrointestinal. MRCP showed no acute abdominal abnormality. At thi s time, we are consulted for proximal lower extremity weakness. Proximal lower extremity weakness is likely secondary to a possible myopathy though the creatine kinase is negative, indicating less like ly because creatine kinase should be positive in order to be a true myelopathy. I feel like she is d econditioned and will likely need physical therapy. We will get an MRI of the lumbosacral spine to a ssess her chronic low back pain, but I feel at this time steroids will only help her temporarily. Sh rufino could have some thyrotoxicosis type of myopathy, but the CK is still normal. At this time, recomme nd just advanced physical therapy and acute rehab. Thank you for this followup. Please reconsult if necessary. Landon Dickerson MD cc: [phone] TT: 01/12/2017 19:17:56 Confirmation # [id number] Dictation # [id number] sn
[2017-01-13 09:31] VITALS: RESP 20; TEMP 98.2; O2SAT 94
[2017-01-13] MEDS: Metoprolol Succinate 100 mg XL Tab PO SCH (12:04)
[2017-01-13] MEDS: diltiaZEM 240 mg/24 Hours CD Cap PO SCH (12:05)
[2017-01-13 12:07] VITALS: BP 133/50; PULSE 69
[2017-01-13] MEDS: Potassium Chloride 20 mEq ER Tab PO SCH (12:11)
--- NOTE | 2017-01-14 08:46 | PN ---
DATE: 01/12/2017 The patient earlier she threw up, vomited on a regular diet and discussion with GI consult, recommend to put her back on pureed diet and soft. Probably, patient does have poor dentures. She forgot her dentures, she cannot chew the food because of that and that may be another reason for her vomiting. The patient otherwise complained of general weakness, especially proximal muscles in both thigh area s and difficulty ambulations. PHYSICAL EXAMINATION: VITAL SIGNS: Temperature 98.8, heart rate 66, blood pressure 141/58, respiration 18, saturation 96%. HEAD AND NECK: Normal. No JVD, no thyromegaly. CHEST: Clear, good air entry. CARDIAC: First sound, second sound normal. ABDOMEN: Soft, nontender. EXTREMITIES: No edema. NEUROLOGICAL: The patient does move all extremities, but she does have proximal muscle weakness, magdaleno ecially in thigh muscles area. The patient also has limited left shoulder range of motion due to pre vious surgery. LABORATORY STUDIES: White count 8, hemoglobin 11.2, hematocrit 34.7, platelets 140. Chemistry: Sod ium , potassium 4.1, chloride 102, bicarb 28, BUN 9, creatinine 0.5. Liver function test is nor mal. Magnesium 2.3. The patient also had CT abdomen and pelvis earlier and it shows dilated CBD. IMPRESSION AND PLAN: 1. Vomiting, abdominal discomfort. The patient seems stable on pureed diet. There is no vomiting, so we will continue soft diet or pureed diet and follow up the patient clinically. If she continues to vomit on that, we may need endoscopy or endoscopic ultrasound. At this time, we will continue vin atment. We may add Actigall and follow up clinically. 2. Chronic deep venous thrombosis, history of pulmonary embolism. Continue Eliquis 5 mg b.i.d. 3. Anemia. The patient has small mild anemia, probably iron deficiency anemia, otherwise stable. S een by hematology as before. We will continue to follow up on that. 4. Hyperthyroidism with TSH low and T3, T4 is elevated. Could be results from noncompliance with me thimazole. We will resume that 3 times a day. 5. Proximal muscle weakness, possibility that could be due to thyroid myopathy from the hyperthyroid ism. At this time, we will continue thyroid medicine. We will monitor her condition. Planning to g et her physical therapy at [facility] and will see the patient how she does. Continue current treatme nt and follow up clinically. Also, gonna get an MRI of her lumbar spine. Oniel De Santiago MD cc: [phone] TT: 01/14/2017 08:45:18 Confirmation # [id number] Dictation # [id number]
--- NOTE | 2017-01-14 15:32 | DS ---
The patient was admitted with generalized proximal muscle weakness, gait disorder. She also has vomi ting and seen by GI, Dr. Velasquez, and also neuro consult, Dr. Landon Dickerson. Evaluations was recomm ended MRCP which shows dilated CBD, no gallstones. Also, patient had MRI of the spine, which still t he result is pending. The patient tolerated the diet, soft diet, pureed diet and recommendation by Lester Fink, if this tolerated due to her poor dentures, we will transfer the patient for physical therapy, [facility] in [facility]. The patient is stable. We will transfer to [facility] and will follow up o sushil there. PHYSICAL EXAMINATION ON DISCHARGE: 01/13: VITAL SIGNS: Her temperature is 98, heart rate 67, blood pressure 149/60, respirations 20, saturatio n 94% on room air. HEAD AND NECK: Normal. No JVD, no thyromegaly. CHEST: Clear, good air entry. CARDIAC: First sound, second sound normal. ABDOMEN: Obese, soft, nontender. EXTREMITIES: No edema. NEUROLOGIC: proximal muscle weakness, otherwise nonfocal. DISCHARGE DIAGNOSES: 1. Proximal muscle weakness. The patient will need physical therapy for training, strengthening mus cles and gait stability. Will be transferred to [facility]. 2. Proximal muscle myopathy. Aldolase level is normal, so it could be related to lack of activity, obesity, back lumbosacral area radiculopathy or it could be also thyroid myopathy due to hyperthyroid ism. We will continue to follow up on that on a regular basis at . 3. Vomiting, dilated common bile duct. Probably, patient is status post cholecystectomy, possible _ ____. Will add Actigall 300 mg once a day and will continue soft diet, pureed diet as tolerated. 4. Morbid obesity, hypertension, hypothyroidism, chronic atrial fibrillations, chronic deep venous t hrombosis, history of pulmonary embolism. The patient also had a bilateral knee replacement. We raquel l continue current treatment. Will follow up clinically. Oniel De Santiago MD cc: [phone] TT: 01/14/2017 15:32:12 en
--- NOTE | 2017-01-15 08:31 | PN ---
DATE: 01/12/2017 ADDENDUM This is an addendum to the GI report dictated by Kaylee LANG. SUBJECTIVE: The patient was seen and evaluated earlier today. The patient did have episodes of vomi ting. The patient's LFTs have been normalized. MRCP: Dilated CBD, but no stones. History of commo n bile duct stones in the past. Lipase has been normalized. At the moment there appears to be no in dication for an ERCP. The concern is vomiting. The patient has very poor dentition. She was trying to eat regular food, not chewing well. The most reasonable course is to change the diet to pureed d iet and continue the empiric PPI therapy. If the patient continues to vomit then she definitely need s an endoscopic evaluation. The patient has been on Eliquis now. History of deep venous thrombosis and hypercoagulable state. I had a detailed discussion with the patient and also Dr. De Santiago. Carlos Alberto Velasquez MD cc: [phone] TT: 01/13/2017 08:17:28 Confirmation # [id number] Dictation # [id number] kelly
--- NOTE | 2017-01-15 10:29 | MRI ---
PROCEDURE: MR LUMBAR SPINE WITHOUT CONTRAST HISTORY: low back pain COMPARISON: None available. TECHNIQUE: Multiecho multiplanar sequences were performed through the lumbar spine without the use of intravenous contrast. FINDINGS: Normal lumbar lordosis. Vertebral body heights are preserved. Marrow signal unremarkable. Conus medullaris unremarkable at the level of L3 with cord tethering Paraspinal soft tissues are unremarkable. OTHER FINDINGS: The conus terminates at L3 and is tethered to an intraspinal bony spur at the L2-3 level best appreciated on image 18 of series 7. This is consistent with diastematomyelia. There is a small syrinx cavity in the lower spinal cord extending from T12 through L1. 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 Mild multilevel disc degeneration
--- NOTE | 2017-01-16 11:51 | PQF GENQUE ---
This form is a permanent part of the medical record Dr. De Santiago, Clarification of your documentation is requested to better reflect the severity of illness and intensity of treatment of your patient. Indicators present : Pt came in with generalized weakness mainly in proximal muscle weakness. Also, elevated lipase level of [address] shows no acute findings for pancreatic abnormality. Please clarify if you still feel if patient have possible acute pancreatitis as per 01/12 PN. Clarify what would be your PDX for the above pt---is it Possible acute pancreatitis OR Myopathy due to hyperthyroidism, specify below. Thank you. [] Specify: [] [] Specify: [] [] Specify: [] [] Specify: [] Location in the medical record that reflects the above clinical findings: [] PN; D/S 01/13 Treatment Provided: [] PHYSICIAN'S RESPONSE Based on your medical judgment of the clinical indicators outlined above please clarify the following: [] Practitioner response [] If unable to determine, please check the box, sign and date. Present On Admission (POA) Indicator: [] Present at the time of admission [] Not present at the time of admission [] Clinically Undetermined In responding to this query, please exercise your independent professional judgment. The fact that a question is asked does not imply that any particular answer is desired or expected. Thank you for your clarification on this documentation. If you have any questions please call:[ ] * Thank you, [ ] defense attorney MANGO
== END 2017-01-13 15:00 | DRG 439 ==
LOC: ED 11:34 → ERH 14:26 → 5RNO 15:31
PROVIDERS: ADMIT Internal Medicine; ATTEND Internal Medicine
DX: K85.90 Acute pancreatitis without necrosis or infection, unspecified (principal); E05.90 Thyrotoxicosis, unspecified without thyrotoxic crisis or storm; G73.7 Myopathy in diseases classified elsewhere; D68.59 Other primary thrombophilia; I82.509 Chronic embolism and thrombosis of unspecified deep veins of unspecified lower extremity; I48.2 Chronic atrial fibrillation; I11.0 Hypertensive heart disease with heart failure; I50.9 Heart failure, unspecified; J44.9 Chronic obstructive pulmonary disease, unspecified; K83.8 Other specified diseases of biliary tract; F32.9 Major depressive disorder, single episode, unspecified; E11.9 Type 2 diabetes mellitus without complications; D50.9 Iron deficiency anemia, unspecified; N32.81 Overactive bladder; M62.81 Muscle weakness (generalized); F41.9 Anxiety disorder, unspecified; M54.17 Radiculopathy, lumbosacral region; Z96.653 Presence of artificial knee joint, bilateral; E78.00 Pure hypercholesterolemia, unspecified; H35.30 Unspecified macular degeneration; M19.90 Unspecified osteoarthritis, unspecified site; E78.5 Hyperlipidemia, unspecified; E66.9 Obesity, unspecified; Z91.14 Patient's other noncompliance with medication regimen; Z79.01 Long term (current) use of anticoagulants; Z86.711 Personal history of pulmonary embolism; Z68.28 Body mass index [BMI] 28.0-28.9, adult; Z88.0 Allergy status to penicillin

== ENCOUNTER 2018-10-31 12:20 | Inpatient (IN) | payer BC, MEDICARE ==
--- NOTE | 2018-10-31 12:54 | ED PDOC ---
Arrival/HPI - General Time Seen by Provider: 10/31/18 12:36 Historian: Patient - History of Present Illness Narrative History of Present Illness (Text): 10/31/18 12:55 Mela Washington is a 78 year old female, with a past medical history of hypothyroidism, a-fib, PE, DVT, cholecystectomy, hypertension, and obesity, and melanoma, who presents to the emergency department complaining of dizziness since past few weeks. Patient was sent by Dr. Wheeler who appreciates bradycardia while patient was in office. Patient informs of heart rate between 30-40 BPM PT A. Patient informs walking in the office when she suddenly became dizzy. Patient also informs of dizziness and shortness of breath at home after walking short distances. Patient informs visiting Dr. Wheeler every 3 months for blood monitoring. Patient also notes diarrhea when consuming butter. Patient denies chest pain, abdominal pain, fevers, chills, headache, cough, abdominal pain, nausea, vomiting, back pain, neck pain, or any other complaint. Time/Duration: 1-3 hours (bradycardia in Dr. Wheeler's office), < month (dizziness, shortness of breath for a few weeks) Symptom Onset: Sudden Symptom Course: Improving Activities at Onset: Light Context: Walking (Walking in Dr. Wheeler's office) Past Medical History - Provider Review Nursing Documentation Reviewed: Yes - Infectious Disease Hx of Infectious Diseases: None - Tetanus Immunization Tetanus Immunization: Unknown - Cardiac Hx Cardiac Disorders: Yes (denies mi) Hx Cardiac Arrhythmia: Yes (a fib) Hx Congestive Heart Failure: Yes Hx Hypertension: Yes Hx Peripheral Edema: Yes - Pulmonary Hx Respiratory Disorders: Yes (pe 09/2014) - Neurological Hx Neurological Disorder: Yes (memory loss) Hx Parkinson's Disease: No - HEENT Hx HEENT Disorder: Yes (glasses) Hx Cataracts: Yes (b/l) Hx Macular Degeneration: Yes Other/Comment: left eye sx - Renal Hx Renal Disorder: No Other/Comment: overactive bladder - Endocrine/Metabolic Hx Diabetes Mellitus Type 2: Yes Hx Hyperthyroidism: Yes - Hematological/Oncological Hx Blood Disorders: (blood transfusions) Hx Anemia: Yes (iron deficiency) - Integumentary Other/Comment: bruises easily, eccymosis to abd, itchy rash to back thighs legs red raised rash,pt stated "I got the rash after given epinephrine and novacaine after my teeth were removed" - Musculoskeletal/Rheumatological Hx Falls: Yes (recent) - Gastrointestinal Hx Gastrointestinal Disorders: Yes (diarrhea 3.5 to 4 months after meals) Hx Gastroesophageal Reflux: Yes Other/Comment: gallstones, common bile duct stent - Genitourinary/Gynecological Hx Genitourinary Disorders: Yes (frequency) Hx Incontinence: Yes - Psychiatric Hx Anxiety: Yes Hx Depression: Yes Hx Emotional Abuse: No Hx Physical Abuse: No Hx Substance Use: No Other/Comment: sleep difficulties - Surgical History Hx Musculoskeletal Surgery: Yes (bilat knee repair) Other/Comment: colonoscopy 1 1/2 months ago polyp removed, teeth removed 2 months ago in prep for dentures, ct guided bx lymphadenopathy, r knee replaced 2010, left knee replacement 2 2014, left humerus fx sx with nohemy, d&c - Anesthesia Hx Anesthesia: Yes Hx Anesthesia Reactions: Yes Hx Malignant Hyperthermia: No - Suicidal Assessment Feels Threatened In Home Enviroment: No Family/Social History - Physician Review Nursing Documentation Reviewed: Yes Family/Social History: No Known Family HX Smoking Status: Former Smoker Hx Alcohol Use: No Hx Substance Use: No Hx Substance Use Treatment: No Allergies/Home Meds Allergies/Adverse Reactions: Allergies epinephrine Allergy (Verified 10/31/18 17:35) RASH novacaine Allergy (Uncoded 10/31/18 17:35) RASH Home Medications: Home Meds Medication Instructions Recorded Confirmed Atorvastatin Calcium [Lipitor] 20 mg PO DAILY 03/30/13 10/31/18 Metoprolol Succinate XL [Toprol XL] 200 mg PO DAILY 09/16/14 10/31/18 Montelukast [Singulair] 10 mg PO DAILY 07/20/15 10/31/18 Potassium Chloride [Klor-Con M20] 10 meq PO DAILY 10/04/15 10/31/18 diltiaZEM CD [Cardizem CD] 240 mg PO DAILY 10/04/15 10/31/18 Carisoprodol [Soma] 350 mg PO BID 10/31/18 10/31/18 Donepezil HCl [Aricept] 5 mg PO HS 10/31/18 10/31/18 Escitalopram [Lexapro] 20 mg PO DAILY 10/31/18 10/31/18 Famotidine [Pepcid] 40 mg PO BID 10/31/18 10/31/18 Folic Acid 1 mg PO DAILY 10/31/18 10/31/18 Furosemide [Lasix] 40 mg PO PRN 10/31/18 10/31/18 SITagliptin [Januvia] 50 mg PO DAILY 10/31/18 10/31/18 Review of Systems - Physician Review All systems were reviewed & negative as marked: Yes - Review of Systems Constitutional: absent: Fevers, Night Sweats Respiratory: SOB. absent: Cough Cardiovascular: GROSS, Other (Bradycardia). absent: Chest Pain Gastrointestinal: Diarrhea. absent: Abdominal Pain, Nausea, Vomiting Musculoskeletal: absent: Back Pain, Neck Pain Neurological: Dizziness. absent: Headache Physical Exam Vital Signs Reviewed: Yes Temperature: Afebrile Blood Pressure: Hypertensive Pulse: Bradycardic Respiratory Rate: Normal Appearance: Positive for: Well-Appearing, Non-Toxic, Comfortable Pain Distress: None Mental Status: Positive for: Alert and Oriented X 3 - Systems Exam Head: Present: Atraumatic, Normocephalic Pupils: Present: PERRL Extroacular Muscles: Present: EOMI Conjunctiva: Present: Normal Mouth: Present: Moist Mucous Membranes Neck: Present: Normal Range of Motion Respiratory/Chest: Present: Clear to Auscultation, Good Air Exchange. No: Respiratory Distress, Accessory Muscle Use, Wheezes, Rales, Rhonchi Cardiovascular: Present: Normal S1, S2, Bradycardic. No: Murmurs, Rub, Gallop Abdomen: No: Tenderness, Distention, Peritoneal Signs Back: Present: Normal Inspection Upper Extremity: Present: Normal Inspection. No: Cyanosis, Edema Lower Extremity: Present: Normal Inspection. No: Edema Neurological: Present: GCS=15, Speech Normal Skin: Present: Warm, Dry, Normal Color. No: Rashes Psychiatric: Present: Alert, Oriented x 3, Normal Insight, Normal Concentration Medical Decision Making ED Course and Treatment: 10/31/18 12:55 Impression: 78 year old female who presents to the emergency department complaining of a dizziness for a few weeks. Pt sent in by Dr. Wheeler who appreciates bradycardia. Differential Diagnosis included but are not limited to: --Arrthymia Plan: -- Labs -- Chest X-Ray -- IV Insertion -- Urinalysis -- Reassess and disposition Prior Visits: Notes and results from previous visits were reviewed. Progress Notes: 10/31/18 12:[address] Erazo(cardiology) at bedside who requests troponin cycling and TSH levels. 10/31/18 14:39 Labs reviewed with elevated BNP and negative troponin. Shared decision making for patient agreeing with decision to stay in the hospital. Call placed to Dr. De Santiago(PCP). 10/31/18 14:[address] De Santiago who accepts patient. - Lab Interpretations Lab Results: 10/31/18 12:50 10/31/18 12:50 Lab Results 10/31/18 12:50: Sodium 138, Potassium 4.9, Chloride 101, Carbon Dioxide 29, Anion Gap 13, BUN 21, Creatinine 1.0, Est GFR ( Amer) > 60, Est GFR (Non- Af Amer) 54, Random Glucose 94, Calcium 9.7, Magnesium 2.1, Total Bilirubin 0.5, AST 24, ALT 15, Alkaline Phosphatase 78, Troponin I < 0.01, NT-Pro-B Natriuret Pep 5710 H, Total Protein 7.5, Albumin 4.3, Globulin 3.2, Albumin/Globulin Ratio 1.3 10/31/18 12:50: PT 20.7 H, INR 1.83, APTT 54.5 H 10/31/18 12:50: WBC 7.2, RBC 4.09, Hgb 12.2, Hct 38.5, MCV 94.1, MCH 29.8, MCHC 31.7, RDW 13.7, Plt Count 210, MPV 11.0, Neut % (Auto) 61.7, Lymph % (Auto) 26.1, Swain % (Auto) 7.5 H, Eos % (Auto) 4.1, Baso % (Auto) 0.6, Lymph # (Auto) 1.9, Swain # (Auto) 0.5, Eos # (Auto) 0.3, Baso # (Auto) 0.04, Absolute Neuts (auto) 4.46 I have reviewed the lab results: Yes - RAD Interpretation Narrative RAD Interpretations (Text): 10/31/18 13:25 Reviewed Chest X-Ray, shows: Chest X-ray Dictator : Jori Estes MD Report Date : 10/31/2018 15:05:36 IMPRESSION: No active disease. Lab Specialist: Radiologist - EKG Interpretation EKG Interpretation (Text): 10/31/18 12:52 Reviewed EKG, shows: Atrial flutter w/ ventricular rate of 40 BPM. Interpreted by ED Physician: Yes Type: 12 lead EKG - Scribe Statement The provider has reviewed the documentation as recorded by the Scribe Damien Sweet All medical record entries made by the Scribe were at my direction and personally dictated by me. I have reviewed the chart and agree that the record accurately reflects my personal performance of the history, physical exam, medical decision making, and the department course for this patient. I have also personally directed, reviewed, and agree with the discharge instructions and d isposition. Disposition/Present on Arrival - Present on Arrival Any Indicators Present on Arrival: No History of DVT/PE: No History of Uncontrolled Diabetes: No Urinary Catheter: No History of Decub. Ulcer: No History Surgical Site Infection Following: None - Disposition Have Diagnosis and Disposition been Completed?: Yes Diagnosis: Bradycardia Patient Problems: Current Active Problems Problem Status Onset Bradycardia Acute
[2018-10-31 13:43] LABS: BASO # 0.04 K/mm3 (0.0-2.0); BASO % 0.6 % (0.0-3.0); EOS # 0.3 (0.0-0.7); EOS % 4.1 % (1.5-5.0); HEMOGLOBIN 12.2 g/dL (12.0-16.0); LYMPH # 1.9 (1.2-3.4); LYMPH % 26.1 % (22.0-35.0); MEAN CELL VOLUME 94.1 fl (80.0-105.0); MEAN CORPUSCULAR HEMOGLOBIN 29.8 pg (25.0-35.0); MEAN CORPUSCULAR HGB CONC 31.7 g/dl (31.0-37.0); MONO # 0.5 (0.1-0.6); MONO % 7.5 % (1.0-6.0); RBC 4.09 10^6/uL (3.5-6.1); RED CELL DISTRIBUTION WIDTH 13.7 % (11.5-14.5); WHITE BLOOD COUNT 7.2 10^3/uL (4.5-11.0)
[2018-10-31 13:50] LABS: INR 1.83; PARTIAL THROMBOPLASTIN TIME 54.5 Seconds (26.9-38.3); PROTHROMBIN TIME 20.7 SECONDS (9.4-12.5)
[2018-10-31 13:53] LABS: ALB/GLOB RATIO 1.3 (1.1-1.8); ALBUMIN 4.3 g/dL (3.0-4.8); ALT/SGPT 15 U/L (7-56); AST/SGOT 24 U/L (14-36); BLOOD UREA NITROGEN 21 mg/dL (7-21); CALCIUM 9.7 mg/dL (8.4-10.5); GFR NON-AFRICAN AMERICAN 54
[2018-10-31 14:04] LABS: B-TYPE NATRIURETIC PEPTIDE 5710 pg/mL (0-450); TROPONIN I < 0.01 ng/mL
--- NOTE | 2018-10-31 15:09 | RAD ---
Date of service: 10/31/2018 HISTORY: dizziness COMPARISON: 01/09/2017 FINDINGS: LUNGS: No active pulmonary disease. PLEURA: No significant pleural effusion identified, no pneumothorax apparent. CARDIOVASCULAR: No aortic atherosclerotic calcification present. Mild cardiomegaly. No pulmonary vascular congestion. OSSEOUS STRUCTURES: No significant abnormalities. VISUALIZED UPPER ABDOMEN: Normal. OTHER FINDINGS: None. IMPRESSION: No active disease.
[2018-10-31 15:56] LABS: FREE T4 1.13 ng/dL (0.78-2.19)
[2018-10-31 17:17] LABS: URINE APPEARANCE SLIGHT-CLOUDY (CLEAR); URINE BILIRUBIN NEGATIVE (NEGATIVE); URINE BLOOD NEGATIVE (NEGATIVE); URINE COLOR YELLOW (YELLOW); URINE GLUCOSE (UA) NEGATIVE (NEGATIVE); URINE LEUKOCYTE ESTERASE LARGE Leu/uL (NEGATIVE); URINE PROTEIN NEGATIVE mg/dL (<30 mg/dL); URINE UROBILINOGEN 0.2 E.U./dL (<1 E.U./dL)
[2018-10-31 17:21] LABS: URINE WBC TNTC /hpf (0-6)
[2018-10-31 17:22] LABS: URINE BACTERIA LARGE /hpf; URINE EPITHELIAL CELLS 0 - 2 /hpf (0-5)
[2018-10-31 21:00] VITALS: BMI 37.2
[2018-10-31] MEDS ORDERED: Pneumococcal 23-Valent Vaccine IM ONE (21:00)
[2018-10-31] MEDS ORDERED: Influenza Vaccine 60 mcg/0.5 mL SYR (4YR UP) IM ONE (21:00)
--- NOTE | 2018-10-31 22:23 | CARD ---
APPROVED REPORT Date of service: 10/31/2018 EKG Measurement Heart [id number] <Conclusion> Atrial flutter- fibrillation with a slow ventricular response Nonspecific ST abnormality Abnormal ECG
--- NOTE | 2018-10-31 23:23 | CON ---
DATE: 10/31/2018 LOCATION: Patient is in emergency room at present. REASON FOR CONSULTATION: Bradycardia, dizziness, shortness of breath, atrial fibrillation, and hypertension. HISTORY OF PRESENT ILLNESS: Patient is a 78-year-old female who is known to have atrial fibrillation, diabetes, hypertension, hyperlipidemia, heart failure secondary to diastolic dysfunction, status post lymph node biopsy. Patient has retroperitoneal bleed post lymph node biopsy requiring blood transfusion in the past. Had cardiac catheterization on 08/25/2009, normal coronaries. Most recent echocardiogram was done on 07/26/2015, which showed normal size LV, normal systolic function of LV with ejection fraction of 68%. RV is dilated and RV systolic function mild to moderately reduced showing severe pulmonary hypertension with RVSP of 78 mmHg. Patient is now admitted with dizziness and she was in Dr. Wheeler's office and she found her heart rate was around 35 per minute, so patient was admitted to emergency room. Patient denies chest pain. She states on exertion she gets shortness of breath. Denies palpitations. PAST MEDICAL HISTORY: Positive for; hypertension, diabetes, hyperlipidemia, LVH, congestive failure secondary to diastolic dysfunction, chronic atrial fibrillation, history of lymph node biopsy, history of retroperitoneal bleed following lymph node biopsy and had blood transfusions, gastroesophageal reflux disease, history of gallstones, and history of anxiety and depression. PREVIOUS CARDIAC WORKUP: History of cardiac catheterization on 08/25/2009 that showed normal coronary, preserved LV function. Most recent echo was done on 07/26/2015, which showed normal LV function with ejection fraction of 68%. RV was dilated and RV systolic function was mid to moderately decreased with RVSP of 78 mmHg suggestive of severe pulmonary hypertension. PAST SURGICAL HISTORY: Positive for lymph node biopsy on 04/12/2000. Patient had cholecystectomy, DVT, removal of melanoma, cataract surgery, macular degeneration, left knee replacement, common bile duct stent, and left humerus fracture which needed surgery also. MEDICATIONS: Patient's list of medications at home; diltiazem CD 240 mg daily, Januvia 50 mg p.o. daily, Singulair 10 mg daily, metoprolol succinate XL 200 mg p.o. daily, furosemide 40 mg p.o. p.r.n., folic acid 1 mg daily, Pepcid 40 mg b.i.d., Lexapro 20 mg p.o. daily, Aricept 5 mg p.o. at bedtime, Soma 350 mg p.o. b.i.d., and atorvastatin 20 mg p.o. daily REVIEW OF SYSTEMS: All the systems reviewed, positive mentioned in the history, others are negative. PHYSICAL EXAMINATION: VITAL SIGNS: Blood pressure is 129/69 earlier on the time of admission was 156/100 and went up to 183/84. respirations 20, pulse 42, and patient is afebrile 98.2. HEENT: Head is normocephalic. Eyes; pupil normal. Conjunctivae normal. Nose and throat normal. NECK: JVP low. Carotids equal. THORAX: AP diameter normal. LUNGS: Clear. CARDIOVASCULAR: S1 and S2. ABDOMEN: Soft and nontender. No organomegaly. Bowel sounds normal. EXTREMITIES: No clubbing. No cyanosis. LABORATORY DATA: Showed WBC 13.7 and platelets 210. Prothrombin time 20.7, INR 1.83, and PTT of 54.5. Sodium 138, potassium 4.9, BUN 21, creatinine 1.0, sugar was 94, and calcium and magnesium normal. AST and ALT normal. Troponin less than 0.01. NT-proB natriuretic peptide 5710. TSH is 0.15, which is low. Free T4 is normal at 1.13. Chest x-ray, lungs are clear. EKG showed atrial fibrillation rate around 40 per minute, ST-T changes. DIAGNOSES: Atrial fibrillation, bradycardia, dizziness, shortness of breath on exertion, hypertension, diabetes mellitus, obesity, hypothyroidism, history of lymph node biopsy, nonspecific finding on biopsy, retroperitoneal bleeding after lymph node biopsy in the past, status post blood transfusion at that time, history of severe pulmonary hypertension, preserved left ventricular function, hypothyroidism, history of anxiety and depression, shortness of breath on minimal exertion, obesity, history of anemia in the past, history of congestive heart failure in the past due to diastolic dysfunction, and hyperlipidemia. PLAN: To continue Eliquis 5 mg b.i.d. We will hold Cardizem and Lopressor. Patient on Aricept 5 mg at bedtime. Folic acid 1 mg p.o. daily, Januvia 50 mg p.o. daily, potassium 10 mEq p.o. daily, Lipitor 20 mg p.o. daily, Pepcid 40 mg p.o. daily, Singulair 10 mg at bedtime. We will order echocardiogram to evaluate LV function and pulmonary hypertension with RV function. Patient will need also nuclear stress test which will be done later on. We will follow with you. Ulises Erzao MD
[2018-11-01] MEDS: Potassium Chloride 10 mEq ER Tab PO SCH (09:58)
--- NOTE | 2018-11-01 14:00 | CARD ---
APPROVED REPORT Date of service: 11/01/2018 EXAM: Two-dimensional and M-mode echocardiogram with Doppler and color Doppler. INDICATION Atrial Fibrillation Pulmonary Hypertention 2D DIMENSIONS Left Atrium (2D)5.9 (1.6-4.0cm)IVSd1.2 (0.7-1.1cm) LVDd5.2 (3.9-5.9cm)PWd1.1 (0.7-1.1cm) LVEF (%)50.8 (>50%) M-Mode DIMENSIONS Aortic Root2.20 (2.2-3.7cm)Aortic Cusp Exc.1.60 (1.5-2.0cm) Aortic Valve AoV Peak Dmuatqjh179.0cm/[place] Peak GR.14mmHg Mitral Valve E/A ratio0.0 TDI E/Lateral E'0.0E/Medial E'0.0 Tricuspid Valve TR Peak [id number]/sRAP [id number] Peak Gr.25mmHg [id number] LEFT VENTRICLE The left ventricle is normal size. LV Septum shows Mild Hypertrophy. LV Septal Wall Motion slightly Decreased but Overall LV Systolic Function still adequate with LV Ej.Fr: 51% Low Normal. RIGHT VENTRICLE The right ventricle is normal size. The right ventricular systolic function is normal. ATRIA The left atrium is moderately dilated. The right atrium size is normal. AORTIC VALVE Aortic Valve Leaflets are Thickened. Valve Opening Normal. MITRAL VALVE Mitral Valve Leaflets are thickened. Valve Opening Normal. Moderate Mitral Regurge. Mitral Annulus Calcified. TRICUSPID VALVE The tricuspid valve is normal in structure. There is mild tricuspid regurgitation.RVSP: 35mm Hg. Mild Pulmonary Hypertension. PERICARDIAL EFFUSION There is no pericardial effusion. <Conclusion> The left ventricle is normal size. LV Septum shows Mild Hypertrophy. LV Septal Wall Motion slightly Decreased but Overall LV Systolic Function still adequate with LV Ej.Fr: 51% Low Normal. The right ventricle is normal size. The right ventricular systolic function is normal. The left atrium is moderately dilated. The right atrium size is normal. Aortic Valve Leaflets are Thickened. Valve Opening Normal. Mitral Valve Leaflets are thickened. Valve Opening Normal. Moderate Mitral Regurge. Mitral Annulus Calcified. The tricuspid valve is normal in structure. There is mild tricuspid regurgitation.RVSP: 35mm Hg. Mild Pulmonary Hypertension. There is no pericardial effusion.
--- NOTE | 2018-11-01 16:38 | PN ---
DATE: 11/01/2018 LOCATION: The patient is in room 269, bed 2. REASON FOR CONSULTATION: Bradycardia, dizziness, shortness of breath, atrial fibrillation, and hypertension. SUBJECTIVE: The patient was admitted with dizziness and found to have bradycardia. The patient denies any chest pain or palpitation, gets shortness of breath on minimal exertion. The patient's EKG showed atrial flutter/fibrillation with slow ventricular rate around 40 heart rate. The patient still at times goes heart rate around 40, but sometime, heart rate is 60, sometime is above 60. The patient denies any chest pain, shortness of breath, or palpitation. Detail cardiac history has been written in our consult dated 10/31/2018. PHYSICAL EXAMINATION VITAL SIGNS: Blood pressure 117/56, respirations 20, pulse 55, and temperature 98.1. HEENT: Head is normocephalic. Eyes, pupils normal. Conjunctivae normal. Nose and throat normal. NECK: JVP low. Carotid equal. THORAX: AP diameter normal. LUNGS: Clear. CARDIOVASCULAR: S1 and S2. Irregular rhythm due to atrial fibrillation. ABDOMEN: Soft, nontender. No organomegaly. Bowel sounds normal. EXTREMITIES: No clubbing. No cyanosis. LABORATORY DATA: WBC 7.2, hemoglobin 12.2, hematocrit 38.5, and platelets 210. Sodium 138, potassium 4.9, BUN 21, creatinine 1.0. AST and ALT normal. Calcium, magnesium, and phosphorous normal. TSH 0.15, but free T4 is 1.13 which is normal. Total protein and albumin normal. Troponin negative. DIAGNOSES: Dizziness, bradycardia, atrial fibrillation, shortness of breath on exertion, hypertension, diabetes mellitus, obesity, hypothyroidism, history of lymph node biopsy in the past which showed nonspecific findings. The patient has retroperitoneal bleeding after lymph node biopsy, for which she need blood transfusion in the past. The patient was told to have severe pulmonary hypertension in the past, preserved left ventricular function, hypothyroidism, history of anxiety and depression, obesity, history of congestive heart failure in the past due to diastolic dysfunction, and hyperlipidemia. PLAN: The patient was on metoprolol and Cardizem, so that has been held since admission because of bradycardia. We will continue to hold those 2 medications and continue Eliquis 5 mg b.i.d., Aricept 5 mg p.o. at bedtime, Januvia 50 mg daily, potassium 10 mEq daily, atorvastatin 20 daily, famotidine 40 mg p.o. daily, and Singulair 10 mg daily. We will monitor the heart rate further and then we will decide whether she should go back on Cardizem and Lopressor or the lower dose, so we will evaluate. The patient also will have echocardiogram today, we will follow that report as well. Ulises Erazo MD
[2018-11-02] MEDS: Potassium Chloride 10 mEq ER Tab PO SCH (08:30)
--- NOTE | 2018-11-02 10:09 | CP.PCM.PN ---
Subjective - Date & Time of Evaluation Date of Evaluation: 11/02/18 Time of Evaluation: 06:45 - Subjective Subjective: Awake, no distress, lying in bed Reason for consultation and follow up: Cardiac evaluation of bradycardia, history of chronic atrial fibrillation on Eliquis, hypertension, diabetes, hyperlipidemia Seen and examined by me and Dr. Erazo Objective - Vital Signs/Intake and Output Vital Signs (last 24 hours): Temp Pulse Resp BP Pulse Ox 97.7 F 61 18 163/84 H 97 11/02/18 05:48 11/02/18 05:48 11/02/18 05:48 11/02/18 05:48 11/01/18 18:00 Intake and Output: 11/02/18 11/02/18 06:59 18:59 Intake Total 1432 Balance 1432 - Medications Medications: Current Medications Amlodipine Besylate (Norvasc) 5 mg PO DAILY [facility] Apixaban (Eliquis) 5 mg PO BID [facility]; Protocol Last Admin: 11/01/18 18:46 Dose: 5 mg Atorvastatin Calcium (Lipitor) 20 mg PO DIN [facility] Last Admin: 11/01/18 18:45 Dose: 20 mg Donepezil HCl (Aricept) 5 mg PO HS [facility] Last Admin: 11/01/18 21:41 Dose: 5 mg Escitalopram Oxalate (Lexapro) 20 mg PO DAILY [facility] Last Admin: 11/01/18 18:45 Dose: 20 mg Famotidine (Pepcid) 40 mg PO DAILY [facility] Last Admin: 11/01/18 09:59 Dose: 40 mg Folic Acid (Folic Acid) 1 mg PO DAILY [facility] Last Admin: 11/01/18 09:59 Dose: 1 mg Furosemide (Lasix) 40 mg PO DAILY [facility] Last Admin: 11/01/18 18:46 Dose: Not Given Montelukast Sodium (Singulair) 10 mg PO DAILY [facility] Last Admin: 11/01/18 09:58 Dose: 10 mg Oxycodone/Acetaminophen (Percocet 10/325 Mg Tab) 1 tab PO Q6H PRN PRN Reason: Pain, moderate (4-7) Potassium Chloride (Klor-Con 10) 10 meq PO BRK [facility] Last Admin: 11/02/18 08:30 Dose: 10 meq Sitagliptin Phosphate (Januvia) 50 mg PO DAILY [facility] Last Admin: 11/01/18 11:46 Dose: Not Given - Labs Labs: 10/31/18 12:50 10/31/18 12:50 PT 20.7 SECONDS (9.4-12.5) H 10/31/18 12:50 INR 1.83 10/31/18 12:50 APTT 54.5 Seconds (26.9-38.3) H 10/31/18 12:50 - Constitutional Appears: Non-toxic, No Acute Distress - Head Exam Head Exam: NORMAL INSPECTION, NORMOCEPHALIC - Eye Exam Eye Exam: Normal appearance Pupil Exam: NORMAL ACCOMODATION - ENT Exam ENT Exam: Mucous Membranes Moist, Normal Exam - Respiratory Exam Respiratory Exam: Decreased Breath Sounds, Clear to Ausculation Bilateral, NORMAL BREATHING PATTERN - Cardiovascular Exam Cardiovascular Exam: Irregular Rhythm, +S1, +S2 Additional comments: Telemetry Atrial fib 60-70's - GI/Abdominal Exam GI & Abdominal Exam: Soft, Normal Bowel Sounds - Extremities Exam Extremities Exam: Full ROM, Normal Capillary Refill - Neurological Exam Neurological Exam: Alert, Awake, Oriented x3 - Psychiatric Exam Psychiatric exam: Normal Affect, Normal Mood - Skin Skin Exam: Dry, Normal Color, Warm Assessment and Plan - Assessment and Plan (Free Text) Assessment: A 78 year old female, who presents to the emergency department complaining of dizziness since past few weeks. History of diastolic congestive heart failure,hyperlipidemia, hypothyroidism, chronic a-fib, on Eliquis, pulmonary embolism, DVT, cholecystectomy, hypertension, and obesity, and melanoma. staus post lymph node biopsy complicated by retroperitoneal bleeding requiring blood transfusion. She was at Dr. Wheeler's office when heart rate was at 30-40's/min and was sent to the ER. Cardiac cath in 07/2009 showed normal coronaries. Patient was on Cardizem and Lopressor at home and on hold due to slow heart rate. EChO done yesterday and showed LVEF 51%, LV septum shows mild hypertrophy, left atrium moderately dilated, aortic and mitral valve leaflets are thickened,opening normal, moderate MR, mitral annulus calcified,mild TR RVSP 35 mmHg, mild pulmonary hypertension. Slow heart rate due to betablockers. Heart rate improved. Will increase Norvasc to better control blood pressure. Plan: No distress Heart rate improved, atrial fib 60-70's Increased Norvasc to 10 mg to better control blood pressure, additional Norvasc 5 mg today Blood pressure stable Continue to hold Cardizem and Lopressor On Eliquis 5 mg BID, Norvasc 5 mg Daily, lipitor 20 mg daily, Aricept 5 mg daily, lasix 40 mg daily, potassium 10 meq daily Continue current medications Continue current treatment Will follow up Plan and treatment discussed with Dr. Erazo
[2018-11-02] MEDS: Oxycodone/Acetaminophen 10/325 mg Tab PO PRN (10:18)
--- NOTE | 2018-11-02 11:05 | HP ---
DATE OF EXAM: 10/31/2018 CHIEF COMPLAINT: The patient complaining of dizzy. HISTORY OF PRESENT ILLNESS: This is a 78-year-old female with history of chronic atrial fibrillation on Cardizem and Toprol-XL 200 mg. The patient was in the Dr. Wheeler's office, found to be bradycardic, heart rate 30 and the patient felt dizzy. The patient came to the ER for evaluation, heart rate was in the 30s. She was admitted for evaluation by Cardiology. The patient denied any chest pain. She does feel sometime short of breath. No nausea. No vomiting. No fever. No other complaints. PAST MEDICAL HISTORY: As I mentioned, chronic atrial fibrillation, hypertension, morbid obesity, knee replacement, chronic back pain, chronic osteoarthritis, history of retroperitoneal bleed in the past resolved, acid reflux symptoms, history of gallstones, history of anxiety and depression, hyperthyroidism, hyperlipidemia, chronic congestive heart failure, diastolic dysfunction. The patient does have hematological problem with monoclonal gammopathy, seen by Dr. Wheeler in the past, anemia. The patient also had cardiac cath in the past by Dr. Judge, which shows right ventricular pressure of 78. PAST SURGICAL HISTORY: Lymph node biopsy was negative, benign. The patient also has history of cholecystectomy, cataract surgery, and melanoma removal. REVIEW OF SYSTEMS: Chronic back pain, knee arthritis, anxiety and depression. No chest pain. No other complaint. Urine sometimes by incontinence. Bowel movement okay. No blood in the stool or in the urine. Short of breath occasionally, but otherwise feel okay. Rest of review of systems is negative. HOME MEDICATIONS: She takes Aricept 5 mg, Lexapro 20, Lasix 40, Soma 350 b.i.d., Pepcid 40 b.i.d., Januvia 50 once a day, Toprol 200 once a day, Klor 10 mEq p.o. daily, Lipitor 20 at bedtime, folic acid 1 mg, Cardizem 240 once a day, and Singulair 10 once a day. ALLERGIES: EPINEPHRINE, ADVIL, AND NOVOCAIN. SOCIAL HISTORY: She lives by himself. No smoking. No drinking. No children. PHYSICAL EXAMINATION: VITAL SIGNS: When she came into the ER, heart rate was in 38, temperature 98, blood pressure 129/80, respirations 18. HEAD AND NECK: Normal. No JVD. No thyromegaly. CHEST: Clear bilateral. CARDIAC: First sound and second sound normal. [place]. ABDOMEN: Obese and nontender. EXTREMITIES: No edema. NEUROLOGICAL: Normal. LABORATORY STUDIES: White count 7.2, hemoglobin 12.2, hematocrit 38.5, platelets 210. Chemistry; sodium 138, potassium 4.9, chloride 101, bicarb 29, BUN 21, creatinine 1, calcium 9.7, magnesium 2.1, total bilirubin 0.5. Liver function test is normal. ProBNP 5710 and TSH was done 0.15. T3 1.13. The patient also had an EKG, which shows atrial fibrillation, heart rate here 40, nonspecific ST-T changes. Chest x-ray was done and it shows no active pulmonary disease. IMPRESSION AND PLAN: This is a 78-year-old female with history of chronic atrial fibrillation on beta-sandhya, calcium channel sandhya, control heart rate; history of congestive heart failure in the past, came in with symptomatic bradycardia. We will admitted the patient to telemetry, Cardiology consult. We will hold up on Toprol and Cardizem. Monitor heart rate and monitored the patient's clinical conditions and will resume all her medications. Also consult Dr. Wheeler for followup and will continue current therapy. Other problem, the patient does have morbid obesity, though she lose weight, but she still need weight loss and will get pulmonary consult to the patient again for pulmonary hypertension, which could be secondary to her left ventricular dysfunction versus possible obstructive sleep apnea. We will continue monitor her condition. Please be advised this note for 10/31/2018, the patient was seen in the emergency room. Oniel De Santiago MD
--- NOTE | 2018-11-02 11:56 | PN ---
DATE: 11/01/2018 SUBJECTIVE: The patient is seen on medical floor. She has no chest pain. No short of breath. Heart rate just starts taken up, getting better. Heart rate is in the 61 range. No chest pain. No dizziness. PHYSICAL EXAMINATION: VITAL SIGNS: Temperature 98.1, heart rate 61, blood pressure 128/73, respirations 20, and saturation 97% on room air. HEAD AND NECK: Normal. No JVD. No thyromegaly. CHEST: Clear bilaterally. CARDIAC: First sound and second sound normal, irregular. There is systolic murmur. ABDOMEN: Obese and nontender. EXTREMITIES: No edema. NEUROLOGIC: Normal. LABORATORY DATA: The patient had workup done today; echocardiography which was read by Dr. Erazo which was significant for. Left ventricle size is normal. There is mild hypertrophy; decreased overall systolic function EF 51%. The patient also left atrium is dilated. There is tricuspid regurgitation; however, pulmonary pressure study shows right ventricular systolic pressure 35 mmHg, consistent with mild pulmonary hypertension. IMPRESSION AND PLAN: 1. Symptomatic bradycardia secondary to possible medication, related to slow heart rate. We will continue to monitor. She is off these medications for now, Toprol and Cardizem. We will continue to monitor heart rate and we will follow up with her computer systems security analyst. 2. Hyperthyroidism, hypercholesterolemia, chronic back pain, chronic osteoarthritis, morbid obesity, chronic obstructive pulmonary disease, hypertension, and chronic atrial fibrillations. Resume Eliquis 5 mg twice a day. Continue Tapazole, Lipitor, Lexapro, Lasix 40, K-Dur 10, Januvia 50 mg daily, folic acid 1 mg, and Aricept 5 mg daily. We will continue current management and follow up clinically. Oniel De Santiago MD
--- NOTE | 2018-11-02 18:32 | CT ---
Date of service: 11/02/2018 PROCEDURE: CT Cervical Spine without contrast HISTORY: neck pain COMPARISON: None available. TECHNIQUE: Axial computed tomography images were obtained of the cervical spine without the use of intravenous contrast. Coronal and sagittal reformatted images were created and reviewed. Radiation dose: Total exam DLP = 533.5 mGy-cm. This CT exam was performed using one or more of the following dose reduction techniques: Automated exposure control, adjustment of the mA and/or kV according to patient size, and/or use of iterative reconstruction technique. FINDINGS: VERTEBRAE: Straightened curvature without fracture or spondylolisthesis appreciated. Advanced multilevel cervical spondylosis affects mid inferior levels with C2-3 and C3-4 somewhat spared. Degenerative changes seen the C1-2 articulation with the craniocervical junction unremarkable. DISCS/SPINAL CANAL/NEURAL FORAMINA: At C2-3, facet arthropathy appears advanced yet there is no significant neural foraminal or central canal stenosis appreciable. At C3-4, facet uncovertebral arthropathy result in mild left but no right neural foraminal stenosis. No significant central canal stenosis. At C4-5, moderate right and moderate to severe left degenerative neural foraminal stenosis a caused by circumferential disc osteophyte complex combining with uncovertebral and facet joint arthropathy. Moderate central stenosis results as well. At C5-6, severe bilateral neural foraminal stenosis and [id number] central canal stenosis results from circumferential disc osteophyte complex combined with facet and uncovertebral joint arthropathy. Discs heights are grossly preserved. At C6-7, mild to moderate central stenosis results from a circumferential disc osteophyte complex combining with uncovertebral and facet arthropathy. In addition, severe bilateral neural foraminal stenosis results, right greater than left. At C7-T1, degenerative change are identified but no significant stenosis results throughout. No gross disc herniation appreciable foot MRI is more sensitive in evaluation of intervertebral discs and soft tissue resolution in general. PARASPINAL SOFT TISSUES: Unremarkable. OTHER FINDINGS: None. IMPRESSION: Straightened cervical curvature. No fracture or spondylolisthesis. Multilevel spondylosis, uncovertebral and facet arthropathy are identified the mid to inferior levels predominantly resulting in variable bilateral neural foraminal and central canal stenoses, seen worst at C4-5 where moderate central canal and right neural foraminal stenoses are identified and moderate to severe left neural foraminal stenosis is appreciated. No gross disc herniation identified throughout.
[2018-11-03] MEDS: Oxycodone/Acetaminophen 10/325 mg Tab PO PRN ×2 (03:35→10:54)
[2018-11-03 07:52] LABS: BLOOD UREA NITROGEN 25 mg/dL (7-21); CALCIUM 9.4 mg/dL (8.4-10.5); GFR NON-AFRICAN AMERICAN > 60
[2018-11-03 07:57] LABS: BASO # 0.03 K/mm3 (0.0-2.0); BASO % 0.4 % (0.0-3.0); EOS # 0.2 (0.0-0.7); EOS % 2.1 % (1.5-5.0); HEMOGLOBIN 12.7 g/dL (12.0-16.0); LYMPH # 1.7 (1.2-3.4); MEAN CELL VOLUME 94.2 fl (80.0-105.0); MEAN CORPUSCULAR HEMOGLOBIN 29.7 pg (25.0-35.0); MEAN CORPUSCULAR HGB CONC 31.5 g/dl (31.0-37.0); MEAN PLATELET VOLUME 10.6 fl (7.0-11.0); MONO # 0.6 (0.1-0.6); RBC 4.28 10^6/uL (3.5-6.1); RED CELL DISTRIBUTION WIDTH 13.6 % (11.5-14.5); WHITE BLOOD COUNT 7.7 10^3/uL (4.5-11.0)
[2018-11-03 08:28] LABS: ARTERIAL BLOOD GAS HCO3 22.7 mmol/L (21-28); ARTERIAL BLOOD GAS HEMOGLOBIN 12.7 g/dL (11.7-17.4); ARTERIAL BLOOD GAS O2 CAPACITY 17.4 mL/dl (16-24); ARTERIAL BLOOD GAS O2 CONTENT 17.1 ML/dl (15-23); ARTERIAL BLOOD GAS O2 SAT 98.2 % (95-98); ARTERIAL BLOOD GAS PCO2 42 mm/Hg (35-45); ARTERIAL BLOOD GAS PH 7.34 (7.35-7.45)
--- NOTE | 2018-11-03 08:49 | CP.PCM.PN ---
Subjective - Date & Time of Evaluation Date of Evaluation: 11/03/18 Time of Evaluation: 06:50 - Subjective Subjective: Awake, no distress, lying in bed Reason for consultation and follow up: Cardiac evaluation of bradycardia, history of chronic atrial fibrillation on Eliquis, hypertension, diabetes, hyperlipidemia Seen and examined by me and Dr. Erazo Objective - Vital Signs/Intake and Output Vital Signs (last 24 hours): Temp Pulse Resp BP Pulse Ox 98 F 67 20 132/67 93 L 11/03/18 06:00 11/03/18 06:00 11/03/18 06:00 11/03/18 06:00 11/03/18 06:00 Intake and Output: 11/03/18 11/03/18 06:59 18:59 Intake Total Balance - Medications Medications: Current Medications Amlodipine Besylate (Norvasc) 10 mg PO DAILY [facility] Apixaban (Eliquis) 5 mg PO BID [facility]; Protocol Last Admin: 11/02/18 17:11 Dose: 5 mg Atorvastatin Calcium (Lipitor) 20 mg PO DIN [facility] Last Admin: 11/02/18 17:11 Dose: 20 mg Donepezil HCl (Aricept) 5 mg PO HS [facility] Last Admin: 11/02/18 21:35 Dose: 5 mg Escitalopram Oxalate (Lexapro) 20 mg PO DAILY [facility] Last Admin: 11/02/18 10:10 Dose: 20 mg Famotidine (Pepcid) 40 mg PO DAILY [facility] Last Admin: 11/02/18 10:12 Dose: 40 mg Folic Acid (Folic Acid) 1 mg PO DAILY [facility] Last Admin: 11/02/18 10:12 Dose: 1 mg Furosemide (Lasix) 40 mg PO DAILY [facility] Last Admin: 11/02/18 10:12 Dose: 40 mg Montelukast Sodium (Singulair) 10 mg PO DAILY [facility] Last Admin: 11/02/18 10:10 Dose: 10 mg Oxycodone/Acetaminophen (Percocet 10/325 Mg Tab) 1 tab PO Q6H PRN PRN Reason: Pain, moderate (4-7) Last Admin: 11/03/18 03:35 Dose: 1 tab Potassium Chloride (Klor-Con 10) 10 meq PO BRK [facility] Last Admin: 11/02/18 08:30 Dose: 10 meq Sitagliptin Phosphate (Januvia) 50 mg PO DAILY [facility] Last Admin: 11/02/18 10:10 Dose: 50 mg - Labs Labs: 11/03/18 07:00 11/03/18 07:00 PT 20.7 SECONDS (9.4-12.5) H 10/31/18 12:50 INR 1.83 10/31/18 12:50 APTT 54.5 Seconds (26.9-38.3) H 10/31/18 12:50 - Constitutional Appears: Non-toxic, No Acute Distress - Head Exam Head Exam: NORMAL INSPECTION, NORMOCEPHALIC - Eye Exam Eye Exam: Normal appearance Pupil Exam: NORMAL ACCOMODATION - ENT Exam ENT Exam: Mucous Membranes Moist, Normal Exam - Respiratory Exam Respiratory Exam: Decreased Breath Sounds, Clear to Ausculation Bilateral, NORMAL BREATHING PATTERN - Cardiovascular Exam Cardiovascular Exam: Irregular Rhythm, +S1, +S2 Additional comments: Telemetry atrial flutter 60-70's - GI/Abdominal Exam GI & Abdominal Exam: Soft, Normal Bowel Sounds - Extremities Exam Extremities Exam: Full ROM, Normal Capillary Refill - Neurological Exam Neurological Exam: Alert, Awake, Oriented x3 - Psychiatric Exam Psychiatric exam: Normal Affect, Normal Mood - Skin Skin Exam: Dry, Normal Color, Warm Assessment and Plan - Assessment and Plan (Free Text) Assessment: A 78 year old female, who presents to the emergency department complaining of dizziness since past few weeks. History of diastolic congestive heart failure,hyperlipidemia, hypothyroidism, chronic a-fib, on Eliquis, pulmonary embolism, DVT, cholecystectomy, hypertension, and obesity, and melanoma. staus post lymph node biopsy complicated by retroperitoneal bleeding requiring blood transfusion. She was at Dr. Wheeler's office when heart rate was at 30-40's/min and was sent to the ER. Cardiac cath in 07/2009 showed normal coronaries. Patient was on Cardizem and Lopressor at home and on hold due to slow heart rate. EChO done yesterday and showed LVEF 51%, LV septum shows mild hypertrophy, left atrium moderately dilated, aortic and mitral valve leaflets are thickened,opening normal, moderate MR, mitral annulus calcified,mild TR RVSP 35 mmHg, mild pulmonary hypertension. Slow heart rate due to betablockers. Heart rate improved. Increase Norvasc 10 mg to better control blood pressure. Continue to hold Metropolol and Cardizem. Plan: No distress, denies chest pain Heart rate improved, atrial fib 60-70's Blood pressure stable Continue to hold Cardizem and Lopressor On Eliquis 5 mg BID, Norvasc 10 mg Daily, Lipitor 20 mg daily, Aricept 5 mg daily, Lasix 40 mg daily, Potassium 10 meq daily Continue current medications Continue current treatment Will follow up Plan and treatment discussed with Dr. Erazo
[2018-11-03] MEDS: Potassium Chloride 10 mEq ER Tab PO SCH (10:43)
[2018-11-03] MEDS ORDERED: Albuterol-Ipratrop 3 mg / 0.5 (3 ml) UD IH PRN (14:31)
--- NOTE | 2018-11-03 15:59 | PN ---
DATE: 11/03/2018 PULMONARY PROGRESS NOTE REFERRING PHYSICIAN: Oniel De Santiago MD SUBJECTIVE: The patient is seen sitting up in bed. No acute distress. No overnight events reported. The patient reports feeling a little lightheaded this morning, but otherwise feeling much better than yesterday. No cough. She does report having some shortness of breath with exertion. No headache, rhinitis, chest pain, abdominal pain, nausea, vomiting, diarrhea, leg pain or leg swelling reported. OBJECTIVE: VITAL SIGNS: Blood pressure 132/67, pulse 65, temperature 98 and oxygen saturation 93%. GENERAL: No acute distress. HEENT: Moist mucous membranes. NECK: Supple. No JVD. CARDIOVASCULAR: S1 and S2. RESPIRATORY: Fair airflow bilaterally. EXTREMITIES: No bilateral lower extremity edema. NEUROLOGIC: Awake, alert, verbal. Following command. MEDICATIONS: Reviewed. Norvasc 10 mg daily, Eliquis 5 mg every 12 hours, Lipitor 20 mg at dinner, Aricept 5 mg at bedtime, Lexapro 20 mg daily, Pepcid 40 mg daily, folic acid 1 mg daily, Lasix 40 mg daily, Singulair 10 mg daily, Percocet 10/325 mg once tab every 6 hours p.r.n., potassium chloride 10 mEq daily and Januvia 50 mg daily. LABORATORY DATA: Reviewed. WBC 7.7, RBC 4.28, hemoglobin 12.7, hematocrit 40.3 and platelets 200. PCO2 of 42, PO2 of 80, pH 7.34 on FiO2 of 21. Sodium 140, potassium 4.9, chloride 103, carbon dioxide 29, anion gap 12, BUN 25, creatinine 0.9, GFR greater than 60, random glucose 96, calcium 9.4, BNP 5710, troponin less than 0.01, free T4 of 1.13 and TSH 0.15. Cervical spine CT unremarkable. IMPRESSION AND PLAN: congestive heart failure, hyperlipidemia, hypothyroidism, chronic atrial fibrillation, pulmonary embolism, deep venous thrombosis, history of hypertension, obesity, cholecystectomy. The patient came in with bradycardia, mild pulmonary hypertension, heart rate has improved since yesterday. We will continue to monitor heart rate. Discussed with the patient today using continuous positive airway pressure machine, the patient states that she refuses to use of continuous positive airway pressure machine at this time. The patient verbalized understanding of cardiopulmonary risk associated with sleep apnea especially due to the patient's history of atrial fibrillation and bradycardia, the patient still at this time continues to refuse. We recommend that this patient have a sleep study as outpatient. Continue Cardiology followup, gastric prophylaxis, currently on anticoagulation therapy. We will add p.r.n. DuoNeb for shortness of breath. This patient was seen and examined with Dr. Mata. Discussed assessment and plan as described above. This patient was seen and examined with Bebeto Taveras, nurse practitioner. Discussed assessment and plan as described above. Thank you for this consult. We will follow with you. Bebeto Taveras APN Ulises Mata MD
--- NOTE | 2018-11-03 17:24 | CON ---
DATE: 11/02/2018 PULMONARY CONSULT REFERRING PHYSICIAN: Oniel De Santiago MD REASON FOR CONSULTATION: Pulmonary hypertension with rule-out sleep apnea syndrome. HISTORY OF PRESENT ILLNESS: This is a 78-year-old female with known history of atrial fibrillation, hypertension, degenerative joint disease, morbid obesity, chronic back pain, osteoarthritis, history of retroperitoneal bleed in the past, also has a GERD, anxiety/depression disorder, hypothyroid, hyperlipidemia, cardiomyopathy with history of diastolic dysfunction, pulmonary hypertension, monoclonal gammopathy, while she was at hematology office found to have a heart rate in 30s symptomatic, was sent to ER, presently admitted on telemetry. She feels better, heart rate is already improved. Seen by cardiology and Dr. De Santiago. The patient admitted to have snoring, daytime sleepy. No nausea, vomiting, no diarrhea. No leg swelling. PAST MEDICAL HISTORY: As per history of present illness. ALLERGIES: TO NOVOCAIN, ADVAIR, EPINEPHRINE. SOCIAL HISTORY: No history of smoking or alcohol use. FAMILY HISTORY: No significant cardiopulmonary disease reported. MEDICATIONS: She is on Aricept 5 mg at bedtime, Eliquis 5 mg twice a day, folic acid 1 mg daily, Januvia 50 mg daily, potassium 10 mEq daily, Lasix 40 mg daily, Lexapro 20 mg daily, Lipitor 20 mg daily, metoprolol tartrate 50 mg twice a day, Norvasc 10 mg daily, Pepcid 40 mg daily, Percocet 10/225 1 tablet every 6 hours p.r.n., Singulair 10 mg daily. REVIEW OF SYSTEMS: No headache, no rhinitis, gets short of breath with minimal exertion. Presently, there is no chest pain. No nausea, vomiting, no diarrhea. No dysuria. PHYSICAL EXAMINATION: GENERAL: No acute distress. VITAL SIGNS: Temperature is 98, heart rate 60s, respiratory is 20, blood pressure 132/82, pulse ox 97% on nasal cannula. HEENT: Moist mucous membrane. Crowded with Mallampati score is 4. NECK: Supple. No JVD. LUNGS: Have a fair airflow with few rhonchi. HEART: Irregularly irregular. ABDOMEN: Soft, nontender. No organomegaly. EXTREMITIES: No edema. NEUROLOGIC: Awake and follows simple commands. LABORATORY DATA: Shows hemoglobin 12.2, hematocrit 38.5, WBC 7.2, platelets 210. INR 1.83, PTT 55. Sodium 38, potassium 4.9, chloride 101, bicarbonate 29, BUN 21, creatinine 1, glucose 94, calcium 9.7, magnesium 2.1. AST 24, ALT 15, alk phos is 78. ProBNP 5710. Albumin is 4.3. TSH is 0.15. Leukocyte esterase is large, rbcs 2 to 5, wbc too numerous to count. Echocardiogram showed mildly decreased LV function, has a mild pulmonary hypertension. Chest x-ray done on admission shows no infiltrate or effusion. Has had a EKG done on admission shows heart rate was 40, atrial flutter/fibrillation with slow ventricular response, also has cervical spine CT done today which shows straightening and cervical curvature, no fracture or spondylolisthesis reported, multilevel spondylosis noted. There is also C4-C5 moderate central canal and right neural foramen stenosis noted. IMPRESSION AND PLAN: Symptomatic bradycardia, probably secondary to with medication, cardiomyopathy, pulmonary hypertension, atrial flutter/fibrillation, morbid obesity, may have component of sleep apnea syndrome, osteoarthritis, hypertension, history of hyperthyroidism, depression, diabetes, monoclonal gammopathy. Case discussed with Dr. De Santiago in detail. Agree with the present treatment. We will continue follow overnight to see if heart rate improve by holding beta-blockers. If persistent brachycardia/tachycardia may need continuous positive airway pressure/bilevel positive airway pressure use while she is hospitalized. Of course, she should have attended sleep study upon discharge as outpatient. There is also component of heart failure. Gastric prophylaxis. Thank you and we will follow with you. Ulises Mata MD
--- NOTE | 2018-11-04 07:51 | CP.PCM.PN ---
Subjective - Date & Time of Evaluation Date of Evaluation: 11/04/18 Time of Evaluation: 06:40 - Subjective Subjective: No distress, lying in bed, awake Reason for consultation and follow up: Cardiac evaluation of bradycardia, history of chronic atrial fibrillation on Eliquis, hypertension, diabetes, hyperlipidemia Seen and examined by me and Dr. Judge Objective - Vital Signs/Intake and Output Vital Signs (last 24 hours): Temp Pulse Resp BP Pulse Ox 98 F 69 20 132/74 95 11/04/18 06:00 11/04/18 06:00 11/04/18 06:00 11/04/18 06:00 11/04/18 06:00 Intake and Output: 11/04/18 11/04/18 06:59 18:59 Intake Total 360 Balance 360 - Medications Medications: Current Medications Albuterol/Ipratropium (Duoneb 3 Mg/0.5 Mg (3 Ml) Ud) 3 ml IH [id number] PRN PRN Reason: Shortness of Breath Amlodipine Besylate (Norvasc) 10 mg PO DAILY [facility] Last Admin: 11/03/18 10:42 Dose: 10 mg Apixaban (Eliquis) 5 mg PO Q12 [facility]; Protocol Last Admin: 11/03/18 21:51 Dose: 5 mg Atorvastatin Calcium (Lipitor) 20 mg PO DIN [facility] Last Admin: 11/03/18 17:59 Dose: 20 mg Donepezil HCl (Aricept) 5 mg PO HS [facility] Last Admin: 11/02/18 21:35 Dose: 5 mg Escitalopram Oxalate (Lexapro) 20 mg PO DAILY [facility] Last Admin: 11/03/18 10:42 Dose: 20 mg Famotidine (Pepcid) 40 mg PO DAILY [facility] Last Admin: 11/03/18 10:43 Dose: 40 mg Folic Acid (Folic Acid) 1 mg PO DAILY [facility] Last Admin: 11/03/18 10:42 Dose: 1 mg Furosemide (Lasix) 40 mg PO DAILY [facility] Last Admin: 11/03/18 10:42 Dose: 40 mg Montelukast Sodium (Singulair) 10 mg PO DAILY [facility] Last Admin: 11/03/18 10:42 Dose: 10 mg Oxycodone/Acetaminophen (Percocet 10/325 Mg Tab) 1 tab PO Q6H PRN PRN Reason: Pain, moderate (4-7) Last Admin: 11/03/18 10:54 Dose: 1 tab Potassium Chloride (Klor-Con 10) 10 meq PO [facility]K [facility] Last Admin: 11/03/18 10:43 Dose: Not Given Sitagliptin Phosphate (Januvia) 50 mg PO DAILY [facility] Last Admin: 11/03/18 10:44 Dose: Not Given - Labs Labs: 11/03/18 07:00 11/03/18 07:00 PT 20.7 SECONDS (9.4-12.5) H 10/31/18 12:50 INR 1.83 10/31/18 12:50 APTT 54.5 Seconds (26.9-38.3) H 10/31/18 12:50 - Constitutional Appears: Non-toxic, No Acute Distress - Head Exam Head Exam: NORMAL INSPECTION, NORMOCEPHALIC - Eye Exam Eye Exam: Normal appearance Pupil Exam: NORMAL ACCOMODATION - ENT Exam ENT Exam: Mucous Membranes Moist, Normal Exam - Respiratory Exam Respiratory Exam: Decreased Breath Sounds, Clear to Ausculation Bilateral, NORMAL BREATHING PATTERN - Cardiovascular Exam Cardiovascular Exam: Irregular Rhythm, +S1, +S2 Additional comments: Telemetry A-flutter 60-70's - GI/Abdominal Exam GI & Abdominal Exam: Soft, Normal Bowel Sounds - Extremities Exam Extremities Exam: Full ROM, Normal Capillary Refill - Neurological Exam Neurological Exam: Alert, Awake, Oriented x3 - Psychiatric Exam Psychiatric exam: Normal Affect, Normal Mood - Skin Skin Exam: Dry, Normal Color, Warm Assessment and Plan - Assessment and Plan (Free Text) Assessment: A 78 year old female, who presents to the emergency department complaining of di zziness since past few weeks. History of diastolic congestive heart failure,hyperlipidemia, hypothyroidism, chronic a-fib, on Eliquis, pulmonary embolism, DVT, cholecystectomy, hypertension, and obesity, and melanoma. staus post lymph node biopsy complicated by retroperitoneal bleeding requiring blood transfusion. She was at Dr. Wheeler's office when heart rate was at 30-40's/min and was sent to the ER. Cardiac cath in 07/2009 showed normal coronaries. Patient was on Cardizem and Lopressor at home and on hold due to slow heart rate. EChO done yesterday and showed LVEF 51%, LV septum shows mild hypertrophy, left atrium moderately dilated, aortic and mitral valve leaflets are thickened,opening normal, moderate MR, mitral annulus calcified,mild TR RVSP 35 mmHg, mild pulmonary hypertension. Slow heart rate due to betablockers. Heart rate improved. Continue to hold Metropolol and Cardizem. Plan: Heart rate improved to 60-70's No distress, denies chest pain Blood pressure stable Continue to hold Cardizem and Lopressor On Eliquis 5 mg BID, Norvasc 10 mg Daily, Lipitor 20 mg daily, Aricept 5 mg daily, Lasix 40 mg daily, Potassium 10 meq daily Continue current medications Continue current treatment Discharge planning Will follow up Plan and treatment discussed with Dr. Judge
[2018-11-04] MEDS: Oxycodone/Acetaminophen 10/325 mg Tab PO PRN (10:42)
[2018-11-04] MEDS: methIMAzole 5 MG TAB PO SCH (10:43)
[2018-11-04] MEDS: Potassium Chloride 10 mEq ER Tab PO SCH (10:43)
--- NOTE | 2018-11-04 12:31 | PN ---
DATE: 11/03/2018 SUBJECTIVE: The patient is seen on 11/03/2018. She is stable, has no chest pain. Not short of breath. Her heart rate is in the 60, 70. She is also on beta blockers, only getting Norvasc and seems to do well. Occasionally, heart rate goes up. We will continue to monitor. PHYSICAL EXAMINATION: VITAL SIGNS: Temperature is 97.8, heart rate 68, blood pressure 151/81, respirations 16, saturation is 94% on room air. HEAD AND NECK: Normal. No JVD. No thyromegaly. CHEST: Clear bilateral. CARDIAC: First sound and second sound, normal, irregular. ABDOMEN: Soft, obese, nontender. EXTREMITIES: No edema. NEUROLOGIC: Normal. LABORATORY DATA: White count 7,7, hemoglobin 12.7, hematocrit 40.3, platelets 200. Chemistry: Sodium 140, potassium 4.9, chloride 102, bicarb 29, BUN 25, creatinine 0.9. IMPRESSION AND PLAN: 1. Bradycardia, symptomatic. Continue to hold off on any Cardizem or metoprolol. We will continue to monitor heart rate. The patient is asymptomatic right now. Heart rate is in 60s, 70s, sometimes goes up to 90. We will continue to monitor heart rate. Currently, on Norvasc 5 mg daily. 2. Hyperthyroidism, stable. 3. Chronic obstructive pulmonary disease. Continue inhaled bronchodilators. 4. Diabetes, controlled. Continue Januvia and insulin coverage. 5. Chronic atrial fibrillation. Continue Eliquis 5 mg b.i.d. 6. Chronic osteoarthritis. Continue Percocet one every 6 hours p.r.n. We will discuss with Cardiology. Oniel De Santiago MD
--- NOTE | 2018-11-04 13:18 | PN ---
DATE: 11/04/2018 PULMONARY PROGRESS NOTE REFERRING PHYSICIAN: Oniel De Santiago MD SUBJECTIVE: The patient is seen lying in bed. No acute distress. No overnight events reported. The patient does reports having some shortness of breath with exertion. No headache, rhinitis, cough, chest pain, abdominal pain, nausea, vomiting, diarrhea, leg pain or leg swelling reported. OBJECTIVE: VITAL SIGNS: Blood pressure 123/69, pulse 72, temperature 97.8 and oxygen saturation 95% on room air. GENERAL: No acute distress. HEENT: Moist mucous membranes. NECK: Supple. No JVD. CARDIOVASCULAR: S1 and S2. RESPIRATORY: Fair airflow bilaterally. ABDOMEN: Soft and nontender. No distention. EXTREMITIES: No bilateral lower extremity edema. NEUROLOGIC: Awake, alert and verbal. Follows commands. MEDICATIONS: Reviewed. DuoNeb 3 mL inhalation every 6 hours p.r.n., Norvasc 10 mg daily, Eliquis 5 mg every 12 hours, Lipitor 20 mg at dinner, Aricept 5 mg at bedtime, Lexapro 20 mg daily, Pepcid 40 mg daily, folic acid 1 mg daily, Lasix 40 mg daily, metamizole 5 mg daily, Lopressor 25 mg twice a day, Singulair 10 mg daily, Percocet 10/325 mg every 6 hours p.r.n., potassium chloride 10 mEq at breakfast and Januvia 50 mg daily. LABORATORY DATA: Reviewed. No new labs since yesterday. IMPRESSION AND PLAN: Asymptomatic bradycardia, hypothyroidism, chronic obstructive pulmonary disease, diabetes mellitus, chronic atrial fibrillation, chronic osteoarthritis, obesity, history of pulmonary embolism, history of deep venous thrombosis and cholecystectomy. The patient has history of mild pulmonary hypertension. Continue cardiology followup. Due to patient's cardiac arrhythmia and obesity, we recommend the patient have sleep study as outpatient to assess cardiovascular complaints and their relation to sleep apnea. Gastric prophylaxis. The patient is currently on anticoagulation therapy. Continue p.r.n. inhaled bronchodilators for shortness of breath. This patient was seen and examined with Dr. Mata. Discussed assessment and plan as described above. This patient was seen and examined with Bebeto Taveras, nurse practitioner. Discussed assessment and plan as described above. Thank you for this consult. We will follow with you. Bebeto Taveras APN Ulises Mata MD [facility] # [id number]
[2018-11-05 06:11] VITALS: RESP 18; O2SAT 93
--- NOTE | 2018-11-05 07:48 | CP.PCM.PN ---
Subjective - Date & Time of Evaluation Date of Evaluation: 11/05/18 Time of Evaluation: 06:45 - Subjective Subjective: No distress, lying in bed, awake, alert, wanted to go home Reason for consultation and follow up: Cardiac evaluation of bradycardia, h istory of chronic atrial fibrillation on Eliquis, hypertension, diabetes, hyperlipidemia Seen and examined by me and Dr. Judge Objective - Vital Signs/Intake and Output Vital Signs (last 24 hours): Temp Pulse Resp BP Pulse Ox 97.4 F L 65 18 129/66 93 L 11/05/18 06:00 11/05/18 06:00 11/05/18 06:00 11/05/18 06:00 11/05/18 06:00 Intake and Output: 11/05/18 11/05/18 06:59 18:59 Intake Total 1380 Output Total 2 Balance 1378 - Medications Medications: Current Medications Albuterol/Ipratropium (Duoneb 3 Mg/0.5 Mg (3 Ml) Ud) 3 ml IH [id number] PRN PRN Reason: Shortness of Breath Amlodipine Besylate (Norvasc) 10 mg PO DAILY [facility] Last Admin: 11/04/18 10:41 Dose: 10 mg Apixaban (Eliquis) 5 mg PO Q12 [facility]; Protocol Last Admin: 11/04/18 21:34 Dose: 5 mg Atorvastatin Calcium (Lipitor) 20 mg PO DIN [facility] Last Admin: 11/04/18 17:36 Dose: 20 mg Donepezil HCl (Aricept) 5 mg PO HS [facility] Last Admin: 11/04/18 21:34 Dose: 5 mg Escitalopram Oxalate (Lexapro) 20 mg PO DAILY [facility] Last Admin: 11/04/18 10:41 Dose: 20 mg Famotidine (Pepcid) 40 mg PO DAILY [facility] Last Admin: 11/04/18 10:43 Dose: 40 mg Folic Acid (Folic Acid) 1 mg PO DAILY [facility] Last Admin: 11/04/18 10:41 Dose: 1 mg Furosemide (Lasix) 40 mg PO DAILY [facility] Last Admin: 11/04/18 10:44 Dose: 40 mg Methimazole (Tapazole) 5 mg PO DAILY [facility] Last Admin: 11/04/18 10:43 Dose: 5 mg Metoprolol Tartrate (Lopressor) 25 mg PO BID [facility] Last Admin: 11/04/18 17:35 Dose: 25 mg Montelukast Sodium (Singulair) 10 mg PO DAILY [facility] Last Admin: 11/04/18 10:41 Dose: 10 mg Oxycodone/Acetaminophen (Percocet 10/325 Mg Tab) 1 tab PO Q6H PRN PRN Reason: Pain, moderate (4-7) Last Admin: 11/04/18 10:42 Dose: 1 tab Potassium Chloride (Klor-Con 10) 10 meq PO BRK [facility] Last Admin: 11/04/18 10:43 Dose: 10 meq Sitagliptin Phosphate (Januvia) 50 mg PO DAILY [facility] Last Admin: 11/04/18 10:44 Dose: Not Given - Labs Labs: 11/03/18 07:00 11/03/18 07:00 PT 20.7 SECONDS (9.4-12.5) H 10/31/18 12:50 INR 1.83 10/31/18 12:50 APTT 54.5 Seconds (26.9-38.3) H 10/31/18 12:50 - Constitutional Appears: Non-toxic, No Acute Distress - Head Exam Head Exam: NORMAL INSPECTION, NORMOCEPHALIC - Eye Exam Eye Exam: Normal appearance Pupil Exam: NORMAL ACCOMODATION - ENT Exam ENT Exam: Mucous Membranes Moist, Normal Exam - Respiratory Exam Respiratory Exam: Decreased Breath Sounds, Clear to Ausculation Bilateral, NORMAL BREATHING PATTERN - Cardiovascular Exam Cardiovascular Exam: Irregular Rhythm, +S1, +S2 Additional comments: Telemetry 60's atrial flutter - GI/Abdominal Exam GI & Abdominal Exam: Soft, Normal Bowel Sounds - Extremities Exam Extremities Exam: Full ROM, Normal Capillary Refill - Neurological Exam Neurological Exam: Alert, Awake, Oriented x3 - Psychiatric Exam Psychiatric exam: Normal Affect, Normal Mood - Skin Skin Exam: Dry, Normal Color, Warm Assessment and Plan - Assessment and Plan (Free Text) Assessment: A 78 year old female, who presents to the emergency department complaining of dizziness since past few weeks. History of diastolic congestive heart failure,hy perlipidemia, hypothyroidism, chronic a-fib, on Eliquis, pulmonary embolism, DVT, cholecystectomy, hypertension, and obesity, and melanoma. staus post lymph node biopsy complicated by retroperitoneal bleeding requiring blood transfusion. She was at Dr. Wheeler's office when heart rate was at 30-40's/min and was sent to the ER. Cardiac cath in 07/2009 showed normal coronaries. Patient was on Cardizem and Lopressor at home and on hold due to slow heart rate. EChO done yesterday and showed LVEF 51%, LV septum shows mild hypertrophy, left atrium moderately dilated, aortic and mitral valve leaflets are thickened,opening normal, moderate MR, mitral annulus calcified,mild TR RVSP 35 mmHg, mild pulmonary hypertension. Heart rate improved. Restarted low dose Lopressor. Will discontinue telemetry. Discharge planning. Plan: No distress Heart rate stable No distress, denies chest pain Blood pressure stable Restarted Lopressor yesterday On Eliquis 5 mg BID, Norvasc 10 mg Daily, Lipitor 20 mg daily,Lopressor 25 mg BID Aricept 5 mg daily, Lasix 40 mg daily, Potassium 10 meq daily Continue current medications Continue current treatment Discharge planning Will discontinue telemetry May discharge from cardiac standpoint Will follow up Plan and treatment discussed with Dr. Judge
[2018-11-05] MEDS: Potassium Chloride 10 mEq ER Tab PO SCH (09:00)
[2018-11-05] MEDS: methIMAzole 5 MG TAB PO SCH (09:52)
[2018-11-05] MEDS: Oxycodone/Acetaminophen 10/325 mg Tab PO PRN (09:52)
--- NOTE | 2018-11-05 11:55 | PN ---
DATE: 11/05/2018 PULMONARY PROGRESS NOTE REFERRING PHYSICIAN: Oniel De Santiago MD SUBJECTIVE: The patient is seen sitting up in bed. No acute distress. No overnight events reported. The patient reports feeling well today. No headache, rhinitis, cough, shortness of breath, chest pain, abdominal pain, nausea, vomiting, diarrhea, leg pain or leg swelling reported. Does have occasional shortness of breath on exertion. OBJECTIVE: VITAL SIGNS: Blood pressure 137/79, pulse 95, temperature 97.4, and oxygen saturation 93% on room air. GENERAL: No acute distress. HEENT: Moist mucous membranes. NECK: Supple. No JVD. CARDIOVASCULAR: S1 and S2. RESPIRATORY: Fair airflow bilaterally. ABDOMEN: Soft and nontender. No distention. No organomegaly. EXTREMITIES: No bilateral lower extremity edema. NEUROLOGIC: Awake, alert and verbal. Follows commands. MEDICATIONS: Reviewed. DuoNeb 3 mL solution every 6 hours p.r.n., Norvasc 10 mg daily, Eliquis 5 mg every 12 hours, Lipitor 20 mg at dinnertime, Aricept 5 mg at bedtime, Lexapro 20 mg daily, Pepcid 40 mg daily, folic acid 1 mg daily, Lasix 40 mg daily, metamizole 5 mg daily, Lopressor 25 mg twice a day, Singulair 10 mg daily, Percocet 10/325 mg one tab every 6 hours p.r.n., potassium chloride 10 mEq at breakfast, and Januvia 50 mg daily. LABORATORY DATA: Reviewed. KENY screen negative. EKG report pending. IMPRESSION AND PLAN: Asymptomatic bradycardia, hypothyroidism, chronic obstructive pulmonary disease, diabetes mellitus, chronic atrial fibrillation, chronic osteoarthritis, obesity, history of pulmonary embolism, history of deep venous thrombosis, cholecystectomy, mild pulmonary hypertension. Due to the patient's cardiac arrhythmia and obesity, we recommend the patient have sleep study as outpatient. The patient refuses to have attended sleep study, so we will recommend the patient have home sleep study as outpatient. This was discussed with the patient in detail. The patient verbalized understanding. Gastric prophylaxis. The patient is currently on anticoagulation therapy. The patient should also have full pulmonary function test to assess chronic obstructive pulmonary disease. This patient was seen and examined with Dr. Mata. Discussed assessment and plan as described above. This patient was seen and examined with Bebeto Taveras, nurse practitioner. Discussed assessment and plan as described above. Thank you for this consult. We will follow with you. Bebeto Taveras APN Ulises Mata MD
--- NOTE | 2018-11-05 12:10 | PN ---
DATE: 11/04/2018 SUBJECTIVE: The patient is comfortable. No distress. No chest pain. The patient's heart rate seems stable. Heart rate top one maximum 80-82; otherwise stable. No temperature. PHYSICAL EXAMINATION: VITAL SIGNS: Temperature 97.7, heart rate 81, blood pressure 124/77, respirations 20. HEAD AND NECK: Normal. No JVD. No thyromegaly. CHEST: Clear bilateral. CARDIAC: First sound and second sound normal. Systolic murmur. ABDOMEN: Obese, nontender. EXTREMITIES: No edema. NEUROLOGIC: Normal. LABORATORY DATA: Last lab was within normal, which include white count 7.7, hemoglobin 12.7, hematocrit 40.8, platelets 200. Chemistry; sodium 140, potassium 4.9, chloride 106, bicarb 29, BUN 25, creatinine 0.5. TSH is 0.15 and free T4 1.13. IMPRESSION AND PLAN: 1. Atrial fibrillations associated with severe bradycardia due to medications. We did hold the Cardizem; only currently she is on metoprolol 25 mg b.i.d., heart rate in the 60 to 70 range. She is comfortable. No distress. We will see how the patient do with ambulation and exertions. 2. Hypertension, stable. She is currently started on Norvasc, which increased to 10 mg once a day. 3. Hypercholesterolemia. Continue Lipitor 20 mg every bedtime. 4. Diabetes. The patient is seems doing well. Continue Januvia 50 mg daily. 5. Hyperthyroidism. The patient was on methimazole 2.5 mg, if TSH is low. We will continue methimazole, I did increase it to 5 mg daily. We will monitor her TSH as outpatient. 6. History of depression. Continue Lexapro 20 mg daily. 7. History of congestive heart failure, edema of lower extremity. The patient is stable on Lasix 40 mg daily and potassium 10 before breakfast daily. 8. As I mentioned above, chronic atrial fibrillation controlled rate. Continue Eliquis 5 mg daily. 9. Chronic obstructive pulmonary disease. The patient is stable. Continue DuoNeb. We will continue to monitor as outpatient. Probably the patient will be if she is stable and okay with the Cardiology, we will discharge her tomorrow. 10. Chronic osteoarthritis, chronic back pain. The patient is stable on Percocet 10 every 6 hour p.r.n. Oniel De Santiago MD
[2018-11-05 14:23] VITALS: BP 148/79; PULSE 64; TEMP 99.3
--- NOTE | 2018-11-05 17:18 | CARD ---
APPROVED REPORT Date of service: 11/05/2018 EKG Measurement Heart [id number] <Conclusion> Atrial flutter with 4:[address] abnormality Abnormal ECG
--- NOTE | 2018-11-06 23:15 | DS ---
HISTORY OF PRESENT ILLNESS: The patient came with symptom of bradycardia. She does have atrial fibrillation on chronic Cardizem and Toprol 200 mg. The patient was on Oncology office, she felt dizzy, found to have a heart rate of 30, came to the ER, evaluated by Cardiology Dr. Judge who did echo, which shows systolic function preserved in the 50's and medication Cardizem and Toprol XL 200 mg was held. The day before discharge, the patient was put on metoprolol 25 mg b.i.d. Heart rate was in the 60 to 70 range, asymptomatic, she feels fine, and was adding Norvasc 10 mg once a day for blood pressure. PHYSICAL EXAMINATION: VITAL SIGNS: Temperature is 97.4, heart rate is 65, blood pressure 129/66, respiration 18, and is saturating 99% on room air. HEENT: Head and neck exam normal. No JVD. No thyromegaly. CHEST: Clear bilateral. CARDIAC: First sound and second sound normal. No murmur, rub or gallop. ABDOMEN: Soft, obese and nontender. EXTREMITIES: No edema. NEUROLOGIC: Normal. LABORATORY DATA: Her CBC laboratory; white count 7.7, hemoglobin 12.7, hematocrit 40.3, and platelets 200. Chemistry shows sodium 140, potassium 4.9, chloride 103, bicarb 29, BUN 25, and creatinine 0.9. Her TSH is 0.15. DISCHARGE DIAGNOSES: 1. Symptomatic bradycardia. 2. Hyperthyroidism. 3. Chronic atrial fibrillation. 4. Chronic diastolic and systolic heart failure with valvular regurgitations, stable. 5. Morbid obesity. 6. Possible obstructive sleep apnea. 7. Chronic back pain. 8. Chronic osteoarthritis. PLAN: Continue current therapy. Current new medications, she will continue all her meds except new medication, Norvasc 10 mg one a day and metoprolol 25 mg b.i.d. The patient is advised to see in office in 1 week. Oniel De Santiago MD
== END 2018-11-05 15:47 | disposition home health service (06) | DRG 309 ==
LOC: ED 12:20 → ERH 15:02 → 2RNO 17:14
PROVIDERS: ADMIT Internal Medicine; ATTEND Internal Medicine
DX: R00.1 Bradycardia, unspecified (principal); I50.32 Chronic diastolic (congestive) heart failure; T46.1X5A Adverse effect of calcium-channel blockers, initial encounter; T44.7X5A Adverse effect of beta-adrenoreceptor antagonists, initial encounter; I48.2 Chronic atrial fibrillation; I27.20 Pulmonary hypertension, unspecified; E03.9 Hypothyroidism, unspecified; I11.0 Hypertensive heart disease with heart failure; E11.9 Type 2 diabetes mellitus without complications; E78.5 Hyperlipidemia, unspecified; K21.9 Gastro-esophageal reflux disease without esophagitis; J44.9 Chronic obstructive pulmonary disease, unspecified; E66.01 Morbid (severe) obesity due to excess calories; G89.29 Other chronic pain; E05.90 Thyrotoxicosis, unspecified without thyrotoxic crisis or storm; E78.00 Pure hypercholesterolemia, unspecified; H35.30 Unspecified macular degeneration; I42.9 Cardiomyopathy, unspecified; I48.92 Unspecified atrial flutter; Z86.711 Personal history of pulmonary embolism; Z86.718 Personal history of other venous thrombosis and embolism

== ENCOUNTER 2019-01-08 07:50 | Outpatient (CLI) | payer MEDICARE | END 2019-01-08 07:51 | disposition home or self-care (01) | LOC: CARDIO 07:50 ==